=== PATIENT | male | born 1985 | race Caucasian/White ===

== ENCOUNTER 2018-03-22 11:52 | Inpatient (IN) | payer MEDICARE, MEDICAID ==
[~2018-03-22] VITALS: Ht 175.3 cm; Wt 96.2 kg
[~2018-03-22 11:52] MED LIST: DIVA500T69 PO; LISI-660 PO; METF500T6 PO; PALI156D IM; PALI6 PO
[2018-03-22 12:13] LABS: GLUCOSE,POINT OF CARE 137 MG/DL (70-110)
[2018-03-22] MEDS ORDERED: LOSA50TA37 PO (12:31)
[2018-03-22] MEDS ORDERED: RISP1 PO (12:31)
[2018-03-22] MEDS ORDERED: SITA100 PO (12:31)
[2018-03-22] MEDS ORDERED: ZOLP10TA7 PO (12:31)
[2018-03-22] MEDS ORDERED: ASPI-556 PO (12:31)
[2018-03-22] MEDS ORDERED: CLOZ100 PO (12:31)
[2018-03-22] MEDS ORDERED: CLOZ25TA4 PO (12:31)
[2018-03-22] MEDS ORDERED: LORA1TAB3 PO (12:31)
[2018-03-22] MEDS ORDERED: FENO145T PO (12:31)
[2018-03-22] MEDS ORDERED: GLIM2 PO (12:31)
[2018-03-22] MEDS ORDERED: DIPH25CA48 PO (12:31)
[2018-03-22] MEDS ORDERED: RISP.5 PO (12:31)
[2018-03-22] MEDS ORDERED: PIOG30TA10 PO (12:31)
[2018-03-22] MEDS ORDERED: DOCU250C77 PO (12:31)
[2018-03-22] MEDS ORDERED: HALOPERIDOL LACTATE 5 MG/ML VIAL IM ONE ×3 (12:45→13:45)
[2018-03-22] MEDS ORDERED: DiphenhydrAMINE HCL 50 MG/ML VIAL IM ONE (12:45)
[2018-03-22] MEDS ORDERED: LORazepam 2 MG/ML VIAL IM ONE ×2 (12:45→14:00)
[2018-03-22 13:02] LABS: BASOPHILS % (AUTO) 0.5 % (0.0-2.0); EOSINOPHILS % (AUTO) 0 % (1.0-6.0); HEMATOCRIT 40.3 % (41-53); HEMOGLOBIN 14.4 g/dL (13.5-17.5); LYMPHOCYTES # (AUTO) 2.3 K/uL (1.0-4.8); LYMPHOCYTES % (AUTO) 33.1 % (22.0-44.0); MEAN CORPUSCULAR HEMOGLOBIN 28.6 pg (26.0-34.0); MEAN CORPUSCULAR HGB CONC 35.7 G/dL (31.0-37.0); MEAN CORPUSCULAR VOLUME 80 fL (80-100); MONOCYTES # (AUTO) 0.5 K/uL (0.1-1.0); MONOCYTES % (AUTO) 7.1 % (2.0-9.0); NEUTROPHILS % (AUTO) 59.3 % (40.0-70.0); PLATELET COUNT (AUTO) 209 K/uL (150-450); RED BLOOD CELL COUNT(AUTO) 5.02 MIL/uL (4.50-5.90); RED CELL DISTRIBUTION WIDTH 14.6 % (11.5-14.5)
[2018-03-22 13:13] LABS: ANION GAP 9 mmol/L (8-16); CALCIUM, TOTAL 9.1 mg/dL (8.8-10.5); CARBON DIOXIDE 29 mmol/L (22-29); CHLORIDE 102 mmol/L (98-107); GLOMERULAR FILTR. RATE CALC > 60 mL/min (>60); GLUCOSE,RANDOM 139 mg/dL (70-110); POTASSIUM 4.1 mmol/L (3.5-5.1); SODIUM SERUM 140 mmol/L (136-145); UREA NITROGEN, BLOOD 16 mg/dL (7-18)
[2018-03-22 13:28] LABS: ALANINE AMINOTRANSFERASE 68 U/L (12-78); ALBUMIN 4.5 g/dL (3.4-5.0); ALKALINE PHOSPHATASE 38 U/L (46-116); ASPARTATE AMINOTRANSFERASE 34 U/L (15-37); BILIRUBIN,TOTAL 0.5 mg/dL (0.1-1.0); THYROID STIMULATING HORMONE 0.91 uIU/mL (0.36-3.74); TOTAL PROTEIN, SERUM 8.8 g/dL (6.4-8.2)
[2018-03-22] MEDS ORDERED: ZOLPIDEM TARTRATE 10 MG TABLET PO PRN (16:00)
[2018-03-22] MEDS ORDERED: AMOX TR/POT CLAV 500 MG/125 MG TABLET PO ONE (16:45)
[2018-03-22 16:51] LABS: AMPHET/METH SCREEN,URINE NEGATIVE (NEGATIVE); BARBITURATE SCREEN, URINE NEGATIVE (NEGATIVE); BENZODIAZEPINES SCREEN,URINE NEGATIVE (NEGATIVE); CANNABINOID SCREEN,URINE NEGATIVE (NEGATIVE); COCAINE SCREEN,URINE NEGATIVE (NEGATIVE); METHADONE SCREEN, URINE NEGATIVE (NEGATIVE); OPIATE SCREEN,URINE NEGATIVE (NEGATIVE); PHENCYCLIDINE SCREEN,URINE NEGATIVE (NEGATIVE)
[2018-03-22] MEDS ORDERED: BENZOCAINE 10% 7 GM GEL TP PRN (17:15)
[2018-03-22] MEDS ORDERED: MAG HYDROX/AL HYDROX/SIMETH ES 30 ML SUSPENSION UDCUP PO PRN (17:30)
[2018-03-22] MEDS ORDERED: MAGNESIUM HYDROXIDE SUSPENSION 30 ML UDCUP PO PRN (17:30)
[2018-03-22] MEDS ORDERED: ALBUTEROL SULFATE HFA 90 MCG/PUFF 8 GM INHALER IH PRN (17:30)
[2018-03-22] MEDS ORDERED: BACITRACIN 28.4 GM OINTMENT TP PRN (17:30)
[2018-03-22] MEDS ORDERED: PETROLATUM,WHITE 71 GM JELLY TP PRN (17:30)
[2018-03-22] MEDS ORDERED: ONDANSETRON HCL 4 MG TABLET PO PRN (17:30)
[2018-03-22] MEDS ORDERED: CloNIDine HCL 0.1 MG TABLET PO PRN (17:30)
[2018-03-22] MEDS ORDERED: IBUPROFEN 600 MG TABLET PO PRN (17:30)
[2018-03-22] MEDS ORDERED: ACETAMINOPHEN 325 MG TABLET PO PRN (17:30)
[2018-03-22] MEDS ORDERED: BENZOCAINE/MENTHOL LOZENGE MM PRN (17:30)
[2018-03-22] MEDS ORDERED: LOPERAMIDE HCL 2 MG CAPSULE PO PRN (17:30)
[2018-03-22 20:36] VITALS: BP 110/71
[2018-03-22 22:03] LABS: GLUCOMETER DEV NAME(LOC) BV3N5; GLUCOSE,POINT OF CARE 132 MG/DL (70-110)
[2018-03-23 05:41] VITALS: BP 118/67
[2018-03-23] MEDS: MetFORMIN HCL 500 MG TABLET PO SCH ×2 (06:36→16:14)
[2018-03-23] MEDS: GLIMEPIRIDE 2 MG TABLET PO SCH (06:36)
[2018-03-23 08:08] VITALS: BP 123/85
[2018-03-23] MEDS: PIOGLITAZONE HCL 30 MG TABLET PO SCH (08:44)
[2018-03-23] MEDS: OMEPRAZOLE 20 MG CAPSULE PO SCH (08:44)
[2018-03-23] MEDS: LOSARTAN POTASSIUM 50 MG TABLET PO SCH (08:44)
[2018-03-23] MEDS: SitaGLIPtin PHOSPHATE 100 MG TABLET PO SCH (08:45)
[2018-03-23] MEDS: DOCUSATE SODIUM 250 MG CAPSULE PO SCH (08:45)
[2018-03-23] MEDS: HALOPERIDOL 5 MG TABLET PO PRN ×2 (08:45→16:15)
[2018-03-23] MEDS: LORazepam 2 MG TABLET PO PRN ×2 (08:45→16:15)
[2018-03-23] MEDS: ASPIRIN 81 MG CHEWABLE TABLET PO SCH (08:45)
[2018-03-23] MEDS ORDERED: DOCUSATE SODIUM 100 MG CAPSULE PO SCH (09:00)
[2018-03-23] MEDS ORDERED: FENOFIBRATE 48 MG TABLET PO SCH (09:00)
[2018-03-23] MEDS: AMOX TR/POT CLAV 500 MG/125 MG TABLET PO SCH ×3 (09:04→16:15)
[2018-03-23] MEDS ORDERED: CloZAPine 25 MG TABLET PO SCH (09:15)
[2018-03-23] MEDS ORDERED: GLUCAGON,HUMAN RECOMBINANT 1 MG VIAL IM PRN (13:30)
[2018-03-23 16:12] VITALS: BP 118/78
[2018-03-23 17:09] LABS: GLUCOMETER DEV NAME(LOC) BV3N5; GLUCOSE,POINT OF CARE 124 MG/DL (70-110)
[2018-03-24 01:35] VITALS: BP 127/78
[2018-03-24 06:16] LABS: GLUCOMETER DEV NAME(LOC) BV3N5; GLUCOSE,POINT OF CARE 123 MG/DL (70-110)
[2018-03-24] MEDS: MetFORMIN HCL 500 MG TABLET PO SCH ×2 (06:19→16:04)
[2018-03-24] MEDS: GLIMEPIRIDE 2 MG TABLET PO SCH (06:19)
[2018-03-24 08:49] VITALS: BP 119/73
[2018-03-24] MEDS ORDERED: CloZAPine 25 MG TABLET PO SCH ×3 (09:00→21:00)
[2018-03-24] MEDS: MUPIROCIN CALCIUM 2% 22 GM OINTMENT NASAL SCH ×2 (09:00→16:04)
[2018-03-24] MEDS: PIOGLITAZONE HCL 30 MG TABLET PO SCH (09:27)
[2018-03-24] MEDS: SitaGLIPtin PHOSPHATE 100 MG TABLET PO SCH (09:27)
[2018-03-24] MEDS: DOCUSATE SODIUM 250 MG CAPSULE PO SCH (09:27)
[2018-03-24] MEDS: AMOX TR/POT CLAV 500 MG/125 MG TABLET PO SCH ×3 (09:27→16:04)
[2018-03-24] MEDS: OMEPRAZOLE 20 MG CAPSULE PO SCH (09:27)
[2018-03-24] MEDS: ASPIRIN 81 MG CHEWABLE TABLET PO SCH (09:28)
[2018-03-24] MEDS: LOSARTAN POTASSIUM 50 MG TABLET PO SCH (09:28)
[2018-03-24] MEDS: FENOFIBRATE 48 MG TABLET PO SCH (09:28)
[2018-03-24] MEDS: HALOPERIDOL 5 MG TABLET PO PRN ×2 (09:29→16:04)
[2018-03-24] MEDS: LORazepam 2 MG TABLET PO PRN ×2 (09:29→16:04)
[2018-03-24 16:00] VITALS: BP 139/69
[2018-03-25 06:23] LABS: GLUCOMETER DEV NAME(LOC) BV3N5; GLUCOSE,POINT OF CARE 113 MG/DL (70-110)
[2018-03-25] MEDS: GLIMEPIRIDE 2 MG TABLET PO SCH (06:25)
[2018-03-25] MEDS: MetFORMIN HCL 500 MG TABLET PO SCH ×2 (06:26→16:41)
[2018-03-25 06:28] VITALS: BP 128/78
[2018-03-25 08:00] VITALS: BP 113/75
[2018-03-25] MEDS ORDERED: CloZAPine 25 MG TABLET PO SCH ×2 (09:00→21:00)
[2018-03-25] MEDS: MUPIROCIN CALCIUM 2% 22 GM OINTMENT NASAL SCH ×2 (09:06→16:42)
[2018-03-25] MEDS: DOCUSATE SODIUM 250 MG CAPSULE PO SCH (09:07)
[2018-03-25] MEDS: ASPIRIN 81 MG CHEWABLE TABLET PO SCH (09:07)
[2018-03-25] MEDS: SitaGLIPtin PHOSPHATE 100 MG TABLET PO SCH (09:07)
[2018-03-25] MEDS: AMOX TR/POT CLAV 500 MG/125 MG TABLET PO SCH ×3 (09:07→16:41)
[2018-03-25] MEDS: PIOGLITAZONE HCL 30 MG TABLET PO SCH (09:07)
[2018-03-25] MEDS: LOSARTAN POTASSIUM 50 MG TABLET PO SCH (09:09)
[2018-03-25] MEDS: OMEPRAZOLE 20 MG CAPSULE PO SCH (09:09)
[2018-03-25] MEDS: FENOFIBRATE 48 MG TABLET PO SCH (09:09)
[2018-03-25 16:07] VITALS: BP 138/71
[2018-03-25 16:33] LABS: GLUCOMETER DEV NAME(LOC) BV3N5; GLUCOSE,POINT OF CARE 105 MG/DL (70-110)
[2018-03-25] MEDS: LORazepam 2 MG TABLET PO PRN (16:41)
[2018-03-26] MEDS: MetFORMIN HCL 500 MG TABLET PO SCH ×2 (06:31→17:25)
[2018-03-26] MEDS: GLIMEPIRIDE 2 MG TABLET PO SCH (06:31)
[2018-03-26 06:36] VITALS: BP 128/74
[2018-03-26 06:53] LABS: GLUCOMETER DEV NAME(LOC) BV3N5; GLUCOSE,POINT OF CARE 127 MG/DL (70-110)
[2018-03-26 08:02] LABS: BASOPHILS % (AUTO) 0.3 % (0.0-2.0); EOSINOPHILS % (AUTO) 0 % (1.0-6.0); HEMATOCRIT 38.2 % (41-53); HEMOGLOBIN 13.9 g/dL (13.5-17.5); LYMPHOCYTES # (AUTO) 2.1 K/uL (1.0-4.8); LYMPHOCYTES % (AUTO) 25.9 % (22.0-44.0); MEAN CORPUSCULAR HEMOGLOBIN 29.2 pg (26.0-34.0); MEAN CORPUSCULAR HGB CONC 36.3 G/dL (31.0-37.0); MEAN CORPUSCULAR VOLUME 80 fL (80-100); MONOCYTES # (AUTO) 0.6 K/uL (0.1-1.0); MONOCYTES % (AUTO) 7.7 % (2.0-9.0); NEUTROPHILS # (AUTO) 5.3 K/uL (1.8-7.7); NEUTROPHILS % (AUTO) 66.1 % (40.0-70.0); PLATELET COUNT (AUTO) 202 K/uL (150-450); RED BLOOD CELL COUNT(AUTO) 4.75 MIL/uL (4.50-5.90); RED CELL DISTRIBUTION WIDTH 14.5 % (11.5-14.5)
[2018-03-26 08:30] LABS: HEMOGLOBIN A1C 6.8 % (4.5-6.2)
[2018-03-26 08:33] VITALS: BP 119/63
[2018-03-26 08:54] LABS: CHOL/HDL RATIO 4.6 (4.2-7.3)
[2018-03-26] MEDS: LOSARTAN POTASSIUM 50 MG TABLET PO SCH (09:27)
[2018-03-26] MEDS: FENOFIBRATE 48 MG TABLET PO SCH (09:27)
[2018-03-26] MEDS: AMOX TR/POT CLAV 500 MG/125 MG TABLET PO SCH ×3 (09:27→17:25)
[2018-03-26] MEDS: PIOGLITAZONE HCL 30 MG TABLET PO SCH (09:27)
[2018-03-26] MEDS: SitaGLIPtin PHOSPHATE 100 MG TABLET PO SCH (09:27)
[2018-03-26] MEDS: CloZAPine 25 MG TABLET PO SCH ×2 (09:27→21:38)
[2018-03-26] MEDS: OMEPRAZOLE 20 MG CAPSULE PO SCH (09:27)
[2018-03-26] MEDS: ASPIRIN 81 MG CHEWABLE TABLET PO SCH (09:28)
[2018-03-26] MEDS: DOCUSATE SODIUM 250 MG CAPSULE PO SCH (09:29)
[2018-03-26] MEDS: LORazepam 2 MG TABLET PO PRN (09:30)
[2018-03-26] MEDS: MUPIROCIN CALCIUM 2% 22 GM OINTMENT NASAL SCH ×2 (09:30→17:26)
[2018-03-26 16:11] VITALS: BP 133/75
[2018-03-26 17:03] LABS: GLUCOMETER DEV NAME(LOC) BV3N5; GLUCOSE,POINT OF CARE 105 MG/DL (70-110)
[2018-03-27 02:08] VITALS: BP 120/79
[2018-03-27 06:34] LABS: GLUCOMETER DEV NAME(LOC) BV3N5; GLUCOSE,POINT OF CARE 117 MG/DL (70-110)
[2018-03-27] MEDS: MetFORMIN HCL 500 MG TABLET PO SCH ×2 (06:45→16:52)
[2018-03-27] MEDS: GLIMEPIRIDE 2 MG TABLET PO SCH (06:45)
[2018-03-27 08:04] VITALS: BP 122/76
[2018-03-27] MEDS: MUPIROCIN CALCIUM 2% 22 GM OINTMENT NASAL SCH ×2 (09:36→16:53)
[2018-03-27] MEDS: AMOX TR/POT CLAV 500 MG/125 MG TABLET PO SCH ×3 (09:37→16:52)
[2018-03-27] MEDS: ASPIRIN 81 MG CHEWABLE TABLET PO SCH (09:37)
[2018-03-27] MEDS: PIOGLITAZONE HCL 30 MG TABLET PO SCH (09:37)
[2018-03-27] MEDS: CloZAPine 25 MG TABLET PO SCH ×2 (09:38→20:18)
[2018-03-27] MEDS: FENOFIBRATE 48 MG TABLET PO SCH (09:38)
[2018-03-27] MEDS: PHENYLEPHRINE/SHK LV/MIN OIL/PET 57 GM OINTMENT TP SCH ×2 (09:38→16:53)
[2018-03-27] MEDS: OMEPRAZOLE 20 MG CAPSULE PO SCH (09:38)
[2018-03-27] MEDS: LOSARTAN POTASSIUM 50 MG TABLET PO SCH (09:38)
[2018-03-27] MEDS: SitaGLIPtin PHOSPHATE 100 MG TABLET PO SCH (09:38)
[2018-03-27] MEDS: DOCUSATE SODIUM 250 MG CAPSULE PO SCH (09:38)
[2018-03-27] MEDS: HALOPERIDOL 5 MG TABLET PO PRN ×2 (12:19→16:53)
[2018-03-27] MEDS: LORazepam 2 MG TABLET PO PRN ×2 (12:19→16:53)
[2018-03-27 16:00] VITALS: BP 116/68
[2018-03-27 17:08] LABS: GLUCOMETER DEV NAME(LOC) BV3N5; GLUCOSE,POINT OF CARE 98 MG/DL (70-110)
[2018-03-28 01:10] VITALS: BP 118/72
[2018-03-28] MEDS: MetFORMIN HCL 500 MG TABLET PO SCH ×2 (06:30→17:02)
[2018-03-28 06:33] LABS: GLUCOMETER DEV NAME(LOC) BV3N5; GLUCOSE,POINT OF CARE 99 MG/DL (70-110)
[2018-03-28] MEDS: GLIMEPIRIDE 2 MG TABLET PO SCH (06:42)
[2018-03-28 08:21] VITALS: BP 107/60
[2018-03-28] MEDS: DOCUSATE SODIUM 250 MG CAPSULE PO SCH (08:31)
[2018-03-28] MEDS: FENOFIBRATE 48 MG TABLET PO SCH (08:31)
[2018-03-28] MEDS: LOSARTAN POTASSIUM 50 MG TABLET PO SCH (08:32)
[2018-03-28] MEDS: PIOGLITAZONE HCL 30 MG TABLET PO SCH (08:32)
[2018-03-28] MEDS: OMEPRAZOLE 20 MG CAPSULE PO SCH (08:32)
[2018-03-28] MEDS: HALOPERIDOL 5 MG TABLET PO PRN ×2 (08:32→18:42)
[2018-03-28] MEDS: AMOX TR/POT CLAV 500 MG/125 MG TABLET PO SCH ×3 (08:32→17:02)
[2018-03-28] MEDS: MUPIROCIN CALCIUM 2% 22 GM OINTMENT NASAL SCH ×2 (08:32→17:03)
[2018-03-28] MEDS: SitaGLIPtin PHOSPHATE 100 MG TABLET PO SCH (08:32)
[2018-03-28] MEDS: LORazepam 2 MG TABLET PO PRN ×2 (08:32→18:42)
[2018-03-28] MEDS: PHENYLEPHRINE/SHK LV/MIN OIL/PET 57 GM OINTMENT TP SCH ×2 (08:33→17:00)
[2018-03-28] MEDS: ASPIRIN 81 MG CHEWABLE TABLET PO SCH (08:35)
[2018-03-28] MEDS ORDERED: CloZAPine 25 MG TABLET PO SCH (09:00)
[2018-03-28 16:00] VITALS: BP 122/74
[2018-03-28] MEDS: INSULIN LISPRO 100 UNITS/ML SQ PRN (17:06)
[2018-03-28 17:28] LABS: GLUCOMETER DEV NAME(LOC) BV3N5; GLUCOSE,POINT OF CARE 173 MG/DL (70-110)
[2018-03-28] MEDS ORDERED: CloZAPine 100 MG TABLET PO SCH (21:00)
[2018-03-29 06:23] LABS: GLUCOMETER DEV NAME(LOC) 3EC; GLUCOSE,POINT OF CARE 106 MG/DL (70-110)
[2018-03-29] MEDS: MetFORMIN HCL 500 MG TABLET PO SCH ×2 (07:01→16:31)
[2018-03-29] MEDS: GLIMEPIRIDE 2 MG TABLET PO SCH (07:01)
[2018-03-29] MEDS: INSULIN LISPRO 100 UNITS/ML SQ PRN (07:02)
[2018-03-29] MEDS: DOCUSATE SODIUM 250 MG CAPSULE PO SCH (08:53)
[2018-03-29] MEDS: ASPIRIN 81 MG CHEWABLE TABLET PO SCH (08:53)
[2018-03-29] MEDS: AMOX TR/POT CLAV 500 MG/125 MG TABLET PO SCH ×3 (08:54→16:31)
[2018-03-29] MEDS: OMEPRAZOLE 20 MG CAPSULE PO SCH (08:54)
[2018-03-29] MEDS: PIOGLITAZONE HCL 30 MG TABLET PO SCH (08:55)
[2018-03-29] MEDS: OMEGA-3/DHA/EPA/FISH OIL 1,000 MG CAPSULE PO SCH (08:55)
[2018-03-29] MEDS: LOSARTAN POTASSIUM 50 MG TABLET PO SCH (08:55)
[2018-03-29] MEDS: FENOFIBRATE 48 MG TABLET PO SCH (08:56)
[2018-03-29] MEDS: SitaGLIPtin PHOSPHATE 100 MG TABLET PO SCH (08:57)
[2018-03-29] MEDS: PHENYLEPHRINE/SHK LV/MIN OIL/PET 57 GM OINTMENT TP SCH ×2 (08:58→16:31)
[2018-03-29] MEDS ORDERED: OMEGA-3/DHA/EPA/FISH OIL 1,000 MG CAPSULE PO SCH (09:00)
[2018-03-29] MEDS ORDERED: CloZAPine 25 MG TABLET PO SCH (09:00)
[2018-03-29 13:20] VITALS: BP 96/68
[2018-03-29 16:34] LABS: GLUCOMETER DEV NAME(LOC) 3EC; GLUCOSE,POINT OF CARE 112 MG/DL (70-110)
[2018-03-29] MEDS ORDERED: CloZAPine 100 MG TABLET PO SCH (21:00)
[2018-03-30] MEDS: GLIMEPIRIDE 2 MG TABLET PO SCH (06:46)
[2018-03-30] MEDS: MetFORMIN HCL 500 MG TABLET PO SCH ×2 (06:46→16:50)
[2018-03-30 08:00] VITALS: BP 106/69
[2018-03-30] MEDS ORDERED: CloZAPine 25 MG TABLET PO SCH (09:00)
[2018-03-30] MEDS: PHENYLEPHRINE/SHK LV/MIN OIL/PET 57 GM OINTMENT TP SCH ×2 (09:00→16:51)
[2018-03-30] MEDS: PIOGLITAZONE HCL 30 MG TABLET PO SCH (09:06)
[2018-03-30] MEDS: DOCUSATE SODIUM 250 MG CAPSULE PO SCH (09:06)
[2018-03-30] MEDS: FENOFIBRATE 48 MG TABLET PO SCH (09:06)
[2018-03-30] MEDS: OMEPRAZOLE 20 MG CAPSULE PO SCH (09:06)
[2018-03-30] MEDS: SitaGLIPtin PHOSPHATE 100 MG TABLET PO SCH (09:07)
[2018-03-30] MEDS: LOSARTAN POTASSIUM 50 MG TABLET PO SCH (09:07)
[2018-03-30] MEDS: ASPIRIN 81 MG CHEWABLE TABLET PO SCH (09:07)
[2018-03-30] MEDS: OMEGA-3/DHA/EPA/FISH OIL 1,000 MG CAPSULE PO SCH (09:07)
[2018-03-30] MEDS: TERBINAFINE HCL 1% 30 GM CREAM TP SCH (16:50)
[2018-03-30 16:58] LABS: GLUCOMETER DEV NAME(LOC) 3EC; GLUCOSE,POINT OF CARE 146 MG/DL (70-110)
[2018-03-30 17:00] VITALS: BP 113/73
[2018-03-30] MEDS: HALOPERIDOL 5 MG TABLET PO PRN (18:21)
[2018-03-30] MEDS: LORazepam 2 MG TABLET PO PRN (18:58)
[2018-03-30] MEDS ORDERED: CloZAPine 100 MG TABLET PO SCH (21:00)
[2018-03-31 05:53] LABS: GLUCOMETER DEV NAME(LOC) 3EC; GLUCOSE,POINT OF CARE 119 MG/DL (70-110)
[2018-03-31] MEDS: INSULIN LISPRO 100 UNITS/ML SQ PRN ×2 (07:03→17:22)
[2018-03-31] MEDS: GLIMEPIRIDE 2 MG TABLET PO SCH (07:04)
[2018-03-31] MEDS: MetFORMIN HCL 500 MG TABLET PO SCH ×2 (07:04→16:27)
[2018-03-31] MEDS: OMEPRAZOLE 20 MG CAPSULE PO SCH (08:33)
[2018-03-31] MEDS: DOCUSATE SODIUM 250 MG CAPSULE PO SCH (08:33)
[2018-03-31] MEDS: ASPIRIN 81 MG CHEWABLE TABLET PO SCH (08:34)
[2018-03-31] MEDS: SitaGLIPtin PHOSPHATE 100 MG TABLET PO SCH (08:34)
[2018-03-31] MEDS: CloZAPine 100 MG TABLET PO SCH ×2 (08:34→20:15)
[2018-03-31] MEDS: OMEGA-3/DHA/EPA/FISH OIL 1,000 MG CAPSULE PO SCH (08:34)
[2018-03-31] MEDS: PIOGLITAZONE HCL 30 MG TABLET PO SCH (08:34)
[2018-03-31] MEDS: FENOFIBRATE 48 MG TABLET PO SCH (08:35)
[2018-03-31] MEDS: LOSARTAN POTASSIUM 50 MG TABLET PO SCH (08:35)
[2018-03-31] MEDS: TERBINAFINE HCL 1% 30 GM CREAM TP SCH (08:37)
[2018-03-31 08:46] VITALS: BP 130/64
[2018-03-31] MEDS: PHENYLEPHRINE/SHK LV/MIN OIL/PET 57 GM OINTMENT TP SCH ×2 (09:00→17:00)
[2018-03-31] MEDS: LORazepam 2 MG TABLET PO PRN (14:27)
[2018-03-31] MEDS: HALOPERIDOL 5 MG TABLET PO PRN (14:28)
[2018-03-31 16:00] VITALS: BP 132/77
[2018-03-31 16:35] LABS: GLUCOMETER DEV NAME(LOC) 3EC; GLUCOSE,POINT OF CARE 142 MG/DL (70-110)
[2018-04-01 06:44] LABS: GLUCOMETER DEV NAME(LOC) 3EC; GLUCOSE,POINT OF CARE 97 MG/DL (70-110)
[2018-04-01] MEDS: GLIMEPIRIDE 2 MG TABLET PO SCH (06:54)
[2018-04-01] MEDS: MetFORMIN HCL 500 MG TABLET PO SCH ×2 (06:54→18:11)
[2018-04-01] MEDS: INSULIN LISPRO 100 UNITS/ML SQ PRN ×2 (06:55→18:25)
[2018-04-01] MEDS: DOCUSATE SODIUM 250 MG CAPSULE PO SCH (09:44)
[2018-04-01] MEDS: CloZAPine 100 MG TABLET PO SCH ×2 (09:44→21:00)
[2018-04-01] MEDS: OMEPRAZOLE 20 MG CAPSULE PO SCH (09:45)
[2018-04-01] MEDS: LOSARTAN POTASSIUM 50 MG TABLET PO SCH (09:45)
[2018-04-01] MEDS: ASPIRIN 81 MG CHEWABLE TABLET PO SCH (09:45)
[2018-04-01] MEDS: PIOGLITAZONE HCL 30 MG TABLET PO SCH (09:45)
[2018-04-01] MEDS: OMEGA-3/DHA/EPA/FISH OIL 1,000 MG CAPSULE PO SCH (09:45)
[2018-04-01] MEDS: PHENYLEPHRINE/SHK LV/MIN OIL/PET 57 GM OINTMENT TP SCH ×2 (09:48→17:00)
[2018-04-01] MEDS: FENOFIBRATE 48 MG TABLET PO SCH (09:48)
[2018-04-01] MEDS: SitaGLIPtin PHOSPHATE 100 MG TABLET PO SCH (09:48)
[2018-04-01] MEDS: TERBINAFINE HCL 1% 30 GM CREAM TP SCH (09:49)
[2018-04-01 12:22] VITALS: BP 136/85
[2018-04-01] MEDS: HALOPERIDOL 5 MG TABLET PO PRN (13:00)
[2018-04-01] MEDS: LORazepam 2 MG TABLET PO PRN (13:00)
[2018-04-01 17:45] VITALS: BP 131/83
[2018-04-01 18:41] LABS: GLUCOMETER DEV NAME(LOC) 3EC; GLUCOSE,POINT OF CARE 194 MG/DL (70-110)
[2018-04-02 06:15] LABS: GLUCOMETER DEV NAME(LOC) 3EC; GLUCOSE,POINT OF CARE 101 MG/DL (70-110)
[2018-04-02 06:34] LABS: BASOPHILS % (AUTO) 0.7 % (0.0-2.0); EOSINOPHILS % (AUTO) 0 % (1.0-6.0); HEMATOCRIT 40.4 % (41-53); HEMOGLOBIN 14.3 g/dL (13.5-17.5); LYMPHOCYTES # (AUTO) 2.4 K/uL (1.0-4.8); LYMPHOCYTES % (AUTO) 34.4 % (22.0-44.0); MEAN CORPUSCULAR HEMOGLOBIN 28.6 pg (26.0-34.0); MEAN CORPUSCULAR HGB CONC 35.4 G/dL (31.0-37.0); MEAN CORPUSCULAR VOLUME 81 fL (80-100); MONOCYTES # (AUTO) 0.5 K/uL (0.1-1.0); MONOCYTES % (AUTO) 7.5 % (2.0-9.0); NEUTROPHILS # (AUTO) 3.9 K/uL (1.8-7.7); NEUTROPHILS % (AUTO) 57.4 % (40.0-70.0); PLATELET COUNT (AUTO) 218 K/uL (150-450); RED BLOOD CELL COUNT(AUTO) 4.99 MIL/uL (4.50-5.90); RED CELL DISTRIBUTION WIDTH 14.1 % (11.5-14.5)
[2018-04-02] MEDS: GLIMEPIRIDE 2 MG TABLET PO SCH (07:03)
[2018-04-02] MEDS: MetFORMIN HCL 500 MG TABLET PO SCH ×2 (07:03→17:53)
[2018-04-02] MEDS: INSULIN LISPRO 100 UNITS/ML SQ PRN (07:04)
[2018-04-02] MEDS ORDERED: CloZAPine 25 MG TABLET PO SCH (09:00)
[2018-04-02 09:07] VITALS: BP 122/76
[2018-04-02] MEDS: OMEGA-3/DHA/EPA/FISH OIL 1,000 MG CAPSULE PO SCH (09:21)
[2018-04-02] MEDS: PIOGLITAZONE HCL 30 MG TABLET PO SCH (09:21)
[2018-04-02] MEDS: LOSARTAN POTASSIUM 50 MG TABLET PO SCH (09:22)
[2018-04-02] MEDS: FENOFIBRATE 48 MG TABLET PO SCH (09:22)
[2018-04-02] MEDS: SitaGLIPtin PHOSPHATE 100 MG TABLET PO SCH (09:25)
[2018-04-02] MEDS: LORazepam 2 MG TABLET PO PRN (09:27)
[2018-04-02] MEDS: DOCUSATE SODIUM 250 MG CAPSULE PO SCH (09:27)
[2018-04-02] MEDS: ASPIRIN 81 MG CHEWABLE TABLET PO SCH (09:27)
[2018-04-02] MEDS: OMEPRAZOLE 20 MG CAPSULE PO SCH (09:27)
[2018-04-02] MEDS: TERBINAFINE HCL 1% 30 GM CREAM TP SCH (09:28)
[2018-04-02] MEDS: HALOPERIDOL 5 MG TABLET PO PRN (09:31)
[2018-04-02 17:09] VITALS: BP 117/84
[2018-04-02 17:34] LABS: GLUCOMETER DEV NAME(LOC) 3EC; GLUCOSE,POINT OF CARE 100 MG/DL (70-110)
[2018-04-02] MEDS ORDERED: CloZAPine 100 MG TABLET PO SCH (21:00)
[2018-04-03 06:23] LABS: GLUCOMETER DEV NAME(LOC) 3EC; GLUCOSE,POINT OF CARE 95 MG/DL (70-110)
[2018-04-03] MEDS: MetFORMIN HCL 500 MG TABLET PO SCH ×2 (07:01→16:29)
[2018-04-03] MEDS: GLIMEPIRIDE 2 MG TABLET PO SCH (07:01)
[2018-04-03] MEDS: INSULIN LISPRO 100 UNITS/ML SQ PRN (07:02)
[2018-04-03] MEDS: ASPIRIN 81 MG CHEWABLE TABLET PO SCH (08:16)
[2018-04-03] MEDS: OMEGA-3/DHA/EPA/FISH OIL 1,000 MG CAPSULE PO SCH (08:16)
[2018-04-03] MEDS: PIOGLITAZONE HCL 30 MG TABLET PO SCH (08:16)
[2018-04-03] MEDS: FENOFIBRATE 48 MG TABLET PO SCH (08:17)
[2018-04-03] MEDS: SitaGLIPtin PHOSPHATE 100 MG TABLET PO SCH (08:17)
[2018-04-03] MEDS: DOCUSATE SODIUM 250 MG CAPSULE PO SCH (08:17)
[2018-04-03] MEDS: OMEPRAZOLE 20 MG CAPSULE PO SCH (08:17)
[2018-04-03] MEDS: LOSARTAN POTASSIUM 50 MG TABLET PO SCH (08:21)
[2018-04-03 08:51] VITALS: BP 136/81
[2018-04-03] MEDS ORDERED: CloZAPine 25 MG TABLET PO SCH (09:00)
[2018-04-03] MEDS: TERBINAFINE HCL 1% 30 GM CREAM TP SCH (09:00)
[2018-04-03] MEDS: BENZTROPINE MESYLATE 1 MG TABLET PO SCH ×2 (10:30→20:19)
[2018-04-03 16:33] LABS: GLUCOMETER DEV NAME(LOC) 3EC; GLUCOSE,POINT OF CARE 97 MG/DL (70-110)
[2018-04-03 17:20] VITALS: BP 131/76
[2018-04-03] MEDS ORDERED: CloZAPine 100 MG TABLET PO SCH (21:00)
[2018-04-04 06:09] LABS: GLUCOMETER DEV NAME(LOC) 3EC; GLUCOSE,POINT OF CARE 108 MG/DL (70-110)
[2018-04-04] MEDS: MetFORMIN HCL 500 MG TABLET PO SCH ×2 (07:01→17:12)
[2018-04-04] MEDS: GLIMEPIRIDE 2 MG TABLET PO SCH (07:01)
[2018-04-04] MEDS: INSULIN LISPRO 100 UNITS/ML SQ PRN (07:03)
[2018-04-04] MEDS: DOCUSATE SODIUM 250 MG CAPSULE PO SCH ×2 (09:00→10:38)
[2018-04-04] MEDS: PIOGLITAZONE HCL 30 MG TABLET PO SCH (10:36)
[2018-04-04] MEDS: OMEGA-3/DHA/EPA/FISH OIL 1,000 MG CAPSULE PO SCH (10:36)
[2018-04-04] MEDS: FENOFIBRATE 48 MG TABLET PO SCH (10:36)
[2018-04-04] MEDS: LOSARTAN POTASSIUM 50 MG TABLET PO SCH (10:36)
[2018-04-04] MEDS: SitaGLIPtin PHOSPHATE 100 MG TABLET PO SCH (10:36)
[2018-04-04] MEDS: TERBINAFINE HCL 1% 30 GM CREAM TP SCH (10:37)
[2018-04-04] MEDS: CloZAPine 100 MG TABLET PO SCH ×2 (10:38→20:58)
[2018-04-04] MEDS: ASPIRIN 81 MG CHEWABLE TABLET PO SCH (10:38)
[2018-04-04] MEDS: OMEPRAZOLE 20 MG CAPSULE PO SCH (10:38)
[2018-04-04] MEDS: BENZTROPINE MESYLATE 1 MG TABLET PO SCH ×2 (10:38→20:58)
[2018-04-04] MEDS: LORazepam 2 MG TABLET PO PRN (12:34)
[2018-04-04] MEDS: HALOPERIDOL 5 MG TABLET PO PRN (12:34)
[2018-04-04 16:24] VITALS: BP 124/78
[2018-04-04 17:39] LABS: GLUCOMETER DEV NAME(LOC) 3EC; GLUCOSE,POINT OF CARE 146 MG/DL (70-110)
[2018-04-05] MEDS: MetFORMIN HCL 500 MG TABLET PO SCH ×2 (06:46→17:23)
[2018-04-05] MEDS: GLIMEPIRIDE 2 MG TABLET PO SCH (06:46)
[2018-04-05 07:03] LABS: GLUCOMETER DEV NAME(LOC) 3EC; GLUCOSE,POINT OF CARE 77 MG/DL (70-110)
[2018-04-05] MEDS: SitaGLIPtin PHOSPHATE 100 MG TABLET PO SCH (08:02)
[2018-04-05] MEDS: DOCUSATE SODIUM 250 MG CAPSULE PO SCH (08:02)
[2018-04-05] MEDS: FENOFIBRATE 48 MG TABLET PO SCH (08:03)
[2018-04-05] MEDS: CloZAPine 100 MG TABLET PO SCH ×2 (08:03→20:14)
[2018-04-05] MEDS: LOSARTAN POTASSIUM 50 MG TABLET PO SCH (08:03)
[2018-04-05] MEDS: OMEGA-3/DHA/EPA/FISH OIL 1,000 MG CAPSULE PO SCH (08:03)
[2018-04-05] MEDS: BENZTROPINE MESYLATE 1 MG TABLET PO SCH ×2 (08:03→20:14)
[2018-04-05] MEDS: PIOGLITAZONE HCL 30 MG TABLET PO SCH (08:03)
[2018-04-05] MEDS: ASPIRIN 81 MG CHEWABLE TABLET PO SCH (08:04)
[2018-04-05] MEDS: OMEPRAZOLE 20 MG CAPSULE PO SCH (08:04)
[2018-04-05] MEDS: TERBINAFINE HCL 1% 30 GM CREAM TP SCH (08:12)
[2018-04-05 12:42] VITALS: BP 127/74
[2018-04-05 16:13] VITALS: BP 108/78
[2018-04-05 16:14] LABS: GLUCOMETER DEV NAME(LOC) 3EC; GLUCOSE,POINT OF CARE 133 MG/DL (70-110)
[2018-04-06 06:09] LABS: GLUCOMETER DEV NAME(LOC) 3EC; GLUCOSE,POINT OF CARE 79 MG/DL (70-110)
[2018-04-06] MEDS: MetFORMIN HCL 500 MG TABLET PO SCH ×2 (06:54→16:34)
[2018-04-06] MEDS: GLIMEPIRIDE 2 MG TABLET PO SCH (06:54)
[2018-04-06] MEDS: PIOGLITAZONE HCL 30 MG TABLET PO SCH (08:29)
[2018-04-06] MEDS: ASPIRIN 81 MG CHEWABLE TABLET PO SCH (08:29)
[2018-04-06] MEDS: OMEPRAZOLE 20 MG CAPSULE PO SCH (08:30)
[2018-04-06] MEDS: OMEGA-3/DHA/EPA/FISH OIL 1,000 MG CAPSULE PO SCH (08:30)
[2018-04-06] MEDS: FENOFIBRATE 48 MG TABLET PO SCH (08:30)
[2018-04-06] MEDS: CloZAPine 100 MG TABLET PO SCH ×2 (08:30→21:25)
[2018-04-06] MEDS: BENZTROPINE MESYLATE 1 MG TABLET PO SCH ×2 (08:30→21:25)
[2018-04-06] MEDS: DOCUSATE SODIUM 250 MG CAPSULE PO SCH (08:30)
[2018-04-06] MEDS: LOSARTAN POTASSIUM 50 MG TABLET PO SCH (08:30)
[2018-04-06] MEDS: SitaGLIPtin PHOSPHATE 100 MG TABLET PO SCH (08:30)
[2018-04-06] MEDS: TERBINAFINE HCL 1% 30 GM CREAM TP SCH (08:31)
[2018-04-06 09:25] VITALS: BP 119/66
[2018-04-06 16:41] VITALS: BP 118/71
[2018-04-06] MEDS: INSULIN LISPRO 100 UNITS/ML SQ PRN (17:30)
[2018-04-06 17:33] LABS: GLUCOMETER DEV NAME(LOC) 3EC; GLUCOSE,POINT OF CARE 168 MG/DL (70-110)
[2018-04-07 05:34] LABS: GLUCOMETER DEV NAME(LOC) 3EC; GLUCOSE,POINT OF CARE 78 MG/DL (70-110)
[2018-04-07] MEDS: MetFORMIN HCL 500 MG TABLET PO SCH ×2 (06:49→16:39)
[2018-04-07] MEDS: GLIMEPIRIDE 2 MG TABLET PO SCH (06:49)
[2018-04-07] MEDS: DOCUSATE SODIUM 250 MG CAPSULE PO SCH (08:26)
[2018-04-07] MEDS: BENZTROPINE MESYLATE 1 MG TABLET PO SCH (08:26)
[2018-04-07] MEDS: ASPIRIN 81 MG CHEWABLE TABLET PO SCH (08:26)
[2018-04-07] MEDS: CloZAPine 100 MG TABLET PO SCH (08:27)
[2018-04-07] MEDS: OMEGA-3/DHA/EPA/FISH OIL 1,000 MG CAPSULE PO SCH (08:27)
[2018-04-07] MEDS: SitaGLIPtin PHOSPHATE 100 MG TABLET PO SCH (08:27)
[2018-04-07] MEDS: FENOFIBRATE 48 MG TABLET PO SCH (08:27)
[2018-04-07] MEDS: OMEPRAZOLE 20 MG CAPSULE PO SCH (08:27)
[2018-04-07] MEDS: LOSARTAN POTASSIUM 50 MG TABLET PO SCH (08:27)
[2018-04-07] MEDS: PIOGLITAZONE HCL 30 MG TABLET PO SCH (08:27)
[2018-04-07 09:20] VITALS: BP 112/68
[2018-04-07] MEDS ORDERED: BENZ1TAB10 PO (10:20)
[2018-04-07] MEDS ORDERED: CLOZ100 PO ×2 (10:20)
[2018-04-07] MEDS ORDERED: OMEG-12 PO (11:05)
[2018-04-07] MEDS ORDERED: OMEP20 PO (11:06)
[2018-04-07 16:54] LABS: GLUCOMETER DEV NAME(LOC) 3EC; GLUCOSE,POINT OF CARE 99 MG/DL (70-110)
== END 2018-04-07 17:00 | disposition home or self-care (01) | DRG 885 ==
LOC: EMS 11:53 → B3A 17:41 → 3EC 03-28 18:21
DX: F25.0 Schizoaffective disorder, bipolar type (principal); R45.851 Suicidal ideations; E11.65 Type 2 diabetes mellitus with hyperglycemia; F12.90 Cannabis use, unspecified, uncomplicated; F17.200 Nicotine dependence, unspecified, uncomplicated; G47.00 Insomnia, unspecified; I10 Essential (primary) hypertension; R32 Unspecified urinary incontinence; R45.850 Homicidal ideations; S02.5XXA Fracture of tooth (traumatic), initial encounter for closed fracture; Z78.1 Physical restraint status; Y04.0XXA Assault by unarmed brawl or fight, initial encounter; Y93.89 Activity, other specified; Y92.89 Other specified places as the place of occurrence of the external cause; Y99.8 Other external cause status
CPT/HCPCS: 83036; 84443; 87081; 96372; 99285; G0480; J1630; J2060

== ENCOUNTER 2025-05-10 16:00 | Inpatient (IN) | payer MEDICARE, MEDICAID ==
[~2025-05-10] VITALS: Ht 172.7 cm; Wt 76.5 kg
[2025-05-10 11:43] VITALS: BP 134/82; PULSE 74; RESP 18; TEMP 97.8; O2SAT 99
[~2025-05-10 16:00] MED LIST changes: +ASPI-556 PO; +BENZ-247 PO; +CLOZ100T12 PO; -DIVA500T69 PO; +DOCU250C77 PO; +FENO145T PO; +GLIM2TAB35 PO; -LISI-660 PO; +LOSA-382 PO; +METF-1211 PO; -METF500T6 PO; +OMEG-12 PO; +OMEP-148 PO; -PALI156D IM; -PALI6 PO; +PIOG30TA10 PO; +SITA100 PO
[2025-05-10] MEDS ORDERED: INSU200I SQ (17:00)
[2025-05-10] MEDS ORDERED: BENZ0.5T52 PO (17:00)
[2025-05-10] MEDS ORDERED: METF-81 PO (17:00)
[2025-05-10] MEDS ORDERED: ATOR-2 PO (17:00)
[2025-05-10] MEDS ORDERED: THIAMINE 100 MG TABLET PO SCH (17:00)
[2025-05-10] MEDS ORDERED: MAGNESIUM HYDROXIDE SUSPENSION 30 ML UDCUP PO PRN (17:00)
[2025-05-10] MEDS ORDERED: INSU100I24 SQ (17:00)
[2025-05-10] MEDS ORDERED: OMEP20CA12 PO (17:00)
[2025-05-10] MEDS ORDERED: ZOLPIDEM TARTRATE 10 MG TABLET PO PRN (17:00)
[2025-05-10] MEDS ORDERED: LOPERAMIDE HCL 2 MG CAPSULE PO PRN (17:00)
[2025-05-10] MEDS ORDERED: MAG HYDROX/ALUMINUM HYD/SIMETH ES 30 ML SUSPENSION UDCUP PO PRN (17:00)
[2025-05-10] MEDS ORDERED: GuaiFENesin/D-METHORPHAN [SUGAR-FREE] 200-20MG/10 ML SYRUP UDCUP PO PRN (17:00)
[2025-05-10] MEDS ORDERED: GABA-529 PO (17:00)
[2025-05-10] MEDS ORDERED: TUBERCULIN, PURIFIED PROTEIN DERIVATIVE 5 TU/0.1 ML SYRINGE ID ONE (17:00)
[2025-05-10] MEDS ORDERED: OLANZapine 5 MG RAPDIS TABLET PO PRN (17:00)
[2025-05-10] MEDS ORDERED: PROMETHAZINE HCL 25 MG TABLET PO PRN (17:00)
[2025-05-10] MEDS ORDERED: CLOZ100T11 PO (17:00)
[2025-05-10] MEDS ORDERED: ACETAMINOPHEN 325 MG TABLET PO PRN (17:00)
[2025-05-10] MEDS ORDERED: [UNRECOGNIZED DRUG - CODE] IM (17:00)
[2025-05-10] MEDS ORDERED: OLANZapine 5 MG RAPDIS TABLET PO SCH (21:00)
[2025-05-10] MEDS ORDERED: DIVALPROEX SODIUM 500 MG ER TABLET PO SCH ×2 (21:00)
[2025-05-10] MEDS ORDERED: MELATONIN 5 MG TABLET PO SCH (21:00)
[2025-05-11] MEDS ORDERED: PNEUMOCOCCAL VACCINE POLYVALENT 0.5 ML SYRINGE [PPSV23] IM. ONE (02:15)
[2025-05-11] MEDS ORDERED: NALTREXONE HCL 50 MG TABLET PO SCH (09:00)
[2025-05-11] MEDS ORDERED: MULTIVITAMINS WITH MINERALS, THERAPEUTIC TABLET PO SCH (09:00)
[2025-05-11] MEDS ORDERED: FOLIC ACID 1 MG TABLET PO SCH (09:00)
[2025-05-11] MEDS ORDERED: PALIPERIDONE PALMITATE 234 MG/1.5 ML SYRINGE IM ONE (09:00)
[2025-05-15] MEDS ORDERED: PALIPERIDONE PALMITATE 156 MG/ML SYRINGE IM ONE (09:00)
== END 2025-05-11 05:36 | disposition short-term general hospital (02) | DRG 885 ==
LOC: B3A 16:29
PROVIDERS: ADMIT Psychiatry & Neurology Psychiatry; ATTEND Psychiatry & Neurology Psychiatry
PROC: GZHZZZZ Group Psychotherapy (ICD-10-PCS; principal; 2025-05-10)
PROC: GZ51ZZZ Individual Psychotherapy, Behavioral (ICD-10-PCS; 2025-05-10)
PROC: GZ58ZZZ Individual Psychotherapy, Cognitive-Behavioral (ICD-10-PCS; 2025-05-10)
PROC: GZ56ZZZ Individual Psychotherapy, Supportive (ICD-10-PCS; 2025-05-11)
DX: F20.9 Schizophrenia, unspecified (principal); E11.10 Type 2 diabetes mellitus with ketoacidosis without coma; J44.9 Chronic obstructive pulmonary disease, unspecified; I10 Essential (primary) hypertension; Z55.5 Less than a high school diploma; Z59.9 Problem related to housing and economic circumstances, unspecified; Z63.9 Problem related to primary support group, unspecified; Z65.3 Problems related to other legal circumstances; Z88.5 Allergy status to narcotic agent

== ENCOUNTER 2025-05-10 23:01 | Inpatient (IN) | payer MEDICARE, OTHER ==
[~2025-05-10] VITALS: Ht 172.7 cm; Wt 80.4 kg
[~2025-05-10 23:01] MED LIST changes: +ATOR-2 PO; +BENZ0.5T52 PO; +CLOZ100T11 PO; +GABA-529 PO; +INSU100I24 SQ; +INSU200I SQ; +METF-81 PO; +OMEP20CA12 PO; +[UNRECOGNIZED DRUG - CODE] IM
[2025-05-11 00:13] LABS: PLATELET COUNT (AUTO) 96 K/uL (150-450); RED BLOOD CELL COUNT(AUTO) 4.60 MIL/uL (4.50-5.90); RED CELL DISTRIBUTION WIDTH 13.5 % (11.5-14.5); WHITE BLOOD COUNT (AUTO) 5.4 K/uL (4.5-11.0)
[2025-05-11 00:15] LABS: CALCIUM, TOTAL 8.2 mg/dL (8.8-10.5); CREATININE 1.13 mg/dL (0.60-1.30); GLOMERULAR FILTR. RATE CALC > 60 mL/min (>60); SODIUM SERUM 130 mmol/L (136-145); UREA NITROGEN, BLOOD 25 mg/dL (7-18)
[2025-05-11 00:18] LABS: ASPARTATE AMINOTRANSFERASE 37 U/L (15-37); PHOSPHORUS 3.2 mg/dL (2.5-4.9); TOTAL PROTEIN, SERUM 6.9 g/dL (6.4-8.2)
[2025-05-11 00:23] LABS: GLUCOSE,RANDOM 655 mg/dL (70-110)
[2025-05-11 00:25] LABS: TROPONIN I-HIGH SENSITIVITY 4 ng/L (<76)
[2025-05-11 00:28] LABS: ALCOHOL, BLOOD (SERUM) < 3 mg/dL (0-10)
[2025-05-11 00:35] LABS: COVID AG,FIA SOURCE NASAL SWAB
[2025-05-11 00:41] LABS: APPEARANCE,URINE CLEAR (CLEAR); GLUCOSE, URINE (UA) >=1000 mg/dL (NEGATIVE); LEUKOCYTE ESTERASE ,URINE NEGATIVE (NEGATIVE); NITRATE,URINE NEGATIVE (NEGATIVE); OCCULT BLOOD,URINE NEGATIVE (NEGATIVE); PH,URINE DRUG SCREEN 6.0 (5.0-8.0); SPECIFIC GRAVITIY, URINE 1.029 (1.003-1.030)
[2025-05-11 00:45] LABS: ACETONE,BLOOD 1:64 (NEGATIVE)
[2025-05-11 00:46] LABS: AMPHET/METH SCREEN,URINE NEGATIVE (NEGATIVE); BARBITURATE SCREEN, URINE NEGATIVE (NEGATIVE); CANNABINOID SCREEN,URINE NEGATIVE (NEGATIVE); COCAINE SCREEN,URINE NEGATIVE (NEGATIVE); METHADONE SCREEN, URINE NEGATIVE (NEGATIVE)
[2025-05-11 00:47] LABS: ALCOHOL, URINE DRUG SCREEN NEGATIVE (NEGATIVE)
[2025-05-11 00:56] LABS: SARS-COV2 (COVID) ANTIGEN,FIA Negative (Negative)
[2025-05-11] MEDS ORDERED: POTASSIUM CHLORIDE 40 MEQ in SODIUM CHLORIDE 0.45% 1,000 ML IV PRN (01:00)
[2025-05-11] MEDS ORDERED: DEXTROSE 50%-WATER 25 GM/50 ML SYRINGE IVP PRN ×2 (01:00→03:00)
[2025-05-11] MEDS ORDERED: DEXTROSE 5%-0.45% SODIUM CHL 1,000 ML IV PRN (01:00)
[2025-05-11 01:13] LABS: CAP TOTAL HEMOGLOBIN 13.4 G/dL (13.5-17.5); CAPILLARY BLOOD BASE EXCESS -2.9 mmol/L (-2.0-3.0); CAPILLARY BLOOD HCO3 22.0 mEq/l (21.0-28.0); CAPILLARY BLOOD OXYGEN SAT 83.7 % (94.0-98.0); CAPILLARY BLOOD PARTIAL CO2 40.3 mmHg (35.0-48.0); CAPILLARY BLOOD PH 7.365 (7.350-7.450); FRACTIONATED INSPIRED OXYGEN 21.0 % (21-100.0); PO2,CAP BLD GAS 48.2 mmHg (83.0-108.0); SITE, BLOOD GAS nURSE dRAW; SOURCE, BLOOD GAS VENOUS; TEMPERATURE, FAHRENHEIT, BG 98.6 FAHREN (96.0-98.6)
[2025-05-11] MEDS: SODIUM CHLORIDE 0.9% 1,000 ML IV SCH ×3 (01:23→11:17)
[2025-05-11] MEDS: INSULIN REGULAR, HUMAN 100 UNITS/ML IVP ONE ×2 (01:24→03:02)
[2025-05-11] MEDS: INSULIN REGULAR, HUMAN 100 UNITS in SODIUM CHLORIDE 0.9% 99 ML IV PRN (01:28)
[2025-05-11 02:35] LABS: GLUCOMETER DEV NAME(LOC) ERT.7; GLUCOSE,POINT OF CARE 310 MG/DL (70-110)
[2025-05-11] MEDS ORDERED: INSULIN REGULAR, HUMAN 100 UNITS in SODIUM CHLORIDE 0.9% 99 ML IV PRN (03:00)
[2025-05-11] MEDS ORDERED: SODIUM CHLORIDE 0.45% 1,000 ML IV PRN (03:00)
[2025-05-11] MEDS: INSULIN REGULAR, HUMAN 100 UNITS/ML IVP PRN (03:29)
[2025-05-11 04:20] LABS: CALCIUM, TOTAL 9.0 mg/dL (8.8-10.5); CREATININE 0.70 mg/dL (0.60-1.30); GLOMERULAR FILTR. RATE CALC > 60 mL/min (>60); GLUCOSE,RANDOM 175 mg/dL (70-110); SODIUM SERUM 139 mmol/L (136-145); UREA NITROGEN, BLOOD 19 mg/dL (7-18)
[2025-05-11 04:25] LABS: PHOSPHORUS 2.7 mg/dL (2.5-4.9)
[2025-05-11] MEDS: DEXTROSE 5%-0.45% SODIUM CHL 1,000 ML IV PRN (04:29)
[2025-05-11 05:53] LABS: ABG BASE EXCESS -1.0 mmol/L (-2.0-3.0); ABG CARBOXYHEMOGLOBIN 0.6 % (0.5-1.5); ABG HCO3 23.9 mmol/L (21.0-28.0); ABG METHEMOGLOBIN 1.1 % (0.0-1.5); ABG OXYGEN CONTENT 18.0 mL/dL (15.0-23.0); ABG OXYGEN SATURATION 96.7 % (94.0-98.0); ABG OXYHEMOGLOBIN 95.1 % (94.0-98.0); ABG PCO2 38 mmHg (32.0-48.0); ABG PH 7.411 (7.350-7.450); ABG TOTAL HEMOGLOBIN 13.4 G/dL (13.5-17.5); FRACTIONATED INSPIRED OXYGEN 21.0 % (21-100.0); PO2, ARTERIAL BG 87.7 mmHg (83.0-108.0); SOURCE, BLOOD GAS ARTERIAL; TEMPERATURE, FAHRENHEIT, BG 98.6 FAHREN (96.0-98.6)
[2025-05-11 05:54] LABS: ABG A-A DIFF O2 16.4 mmHg (10-20.0); ALLEN TEST, BLOOD GAS POS; SITE, BLOOD GAS RT RADIAL
[2025-05-11] MEDS: POTASSIUM CHLORIDE 40 MEQ in SODIUM CHLORIDE 0.45% 1,000 ML IV PRN (06:20)
[2025-05-11 06:29] LABS: PHOSPHORUS 2.7 mg/dL (2.5-4.9)
[2025-05-11 06:32] LABS: ASPARTATE AMINOTRANSFERASE 25 U/L (15-37); CALCIUM, TOTAL 7.7 mg/dL (8.8-10.5); CREATININE 0.68 mg/dL (0.60-1.30); GLOMERULAR FILTR. RATE CALC > 60 mL/min (>60); GLUCOSE,RANDOM 79 mg/dL (70-110); SODIUM SERUM 143 mmol/L (136-145); TOTAL PROTEIN, SERUM 6.5 g/dL (6.4-8.2); UREA NITROGEN, BLOOD 16 mg/dL (7-18)
[2025-05-11] MEDS ORDERED: MAGNESIUM HYDROXIDE SUSPENSION 30 ML UDCUP PO PRN (06:45)
[2025-05-11] MEDS ORDERED: ONDANSETRON HCL 4 MG/2 ML VIAL IVP PRN (06:45)
[2025-05-11] MEDS ORDERED: BISACODYL 10 MG RECTAL RECTAL SUPPOSITORY PR PRN (06:45)
[2025-05-11 07:50] LABS: GLUCOMETER DEV NAME(LOC) ERT.7; GLUCOSE,POINT OF CARE 140 MG/DL (70-110)
[2025-05-11 08:46] LABS: CALCIUM, TOTAL 7.3 mg/dL (8.8-10.5); CREATININE 0.72 mg/dL (0.60-1.30); GLOMERULAR FILTR. RATE CALC > 60 mL/min (>60); SODIUM SERUM 130 mmol/L (136-145); UREA NITROGEN, BLOOD 14 mg/dL (7-18)
[2025-05-11 08:48] LABS: GLUCOSE,RANDOM 484 mg/dL (70-110)
[2025-05-11 08:50] LABS: GLUCOMETER DEV NAME(LOC) ERT.7; GLUCOSE,POINT OF CARE 133 MG/DL (70-110)
[2025-05-11 09:00] VITALS: BP 126/86; PULSE 93; RESP 17; TEMP 98; O2SAT 96
[2025-05-11] MEDS: PANTOPRAZOLE SODIUM 40 MG DR TABLET PO SCH (09:00)
[2025-05-11] MEDS: ATORVASTATIN CALCIUM 40 MG TABLET PO SCH (09:00)
[2025-05-11] MEDS: DOCUSATE SODIUM 100 MG CAPSULE PO SCH (09:00)
[2025-05-11] MEDS: HEPARIN SODIUM,PORCINE 5,000 UNITS/ML VIAL SQ SCH (10:08)
[2025-05-11] MEDS: POTASSIUM CHL 20 MEQ/0.45% NS 1,000 ML IV PRN (10:09)
[2025-05-11 10:10] LABS: GLUCOMETER DEV NAME(LOC) ICUN.6; GLUCOSE,POINT OF CARE 137 MG/DL (70-110)
[2025-05-11] MEDS ORDERED: GLUCAGON,HUMAN RECOMBINANT 1 MG VIAL IM PRN (11:15)
[2025-05-11 12:00] VITALS: BP 126/81; PULSE 80; RESP 20; TEMP 98; O2SAT 98
[2025-05-11] MEDS: INSULIN LISPRO 100 UNITS/ML SQ PRN (12:59)
[2025-05-11 13:26] LABS: GLUCOMETER DEV NAME(LOC) ICUN.6; GLUCOSE,POINT OF CARE 150 MG/DL (70-110)
[2025-05-11 16:00] VITALS: BP 120/79; PULSE 69; PULSE 71; RESP 18; TEMP 98.7; O2SAT 93
[2025-05-11 17:36] LABS: GLUCOMETER DEV NAME(LOC) ICUN.6; GLUCOSE,POINT OF CARE 233 MG/DL (70-110)
[2025-05-11 20:45] VITALS: BP 114/83; PULSE 71; RESP 17; TEMP 98.4; O2SAT 96
[2025-05-11] MEDS: INSULIN GLARGINE,HUM.REC.ANLOG 100 UNITS/ML SQ SCH (20:47)
[2025-05-12 00:13] VITALS: BP 102/63; PULSE 61; RESP 18; TEMP 97.7; O2SAT 100
[2025-05-12 04:28] VITALS: BP 96/64; PULSE 58; RESP 17; TEMP 97.9; O2SAT 100
[2025-05-12] MEDS: ACETAMINOPHEN 325 MG TABLET PO PRN (04:48)
[2025-05-12 07:27] VITALS: BP 114/89; PULSE 78; RESP 18; TEMP 97.9; O2SAT 99
[2025-05-12 07:27] LABS: PHOSPHORUS 3.4 mg/dL (2.5-4.9)
[2025-05-12 09:56] LABS: PLATELET COUNT (AUTO) 112 K/uL (150-450); RED BLOOD CELL COUNT(AUTO) 4.60 MIL/uL (4.50-5.90); RED CELL DISTRIBUTION WIDTH 13.9 % (11.5-14.5); WHITE BLOOD COUNT (AUTO) 3.9 K/uL (4.5-11.0)
[2025-05-12 10:03] LABS: CALCIUM, TOTAL 8.3 mg/dL (8.8-10.5); CREATININE 0.80 mg/dL (0.60-1.30); GLOMERULAR FILTR. RATE CALC > 60 mL/min (>60); GLUCOSE,RANDOM 297 mg/dL (70-110); SODIUM SERUM 137 mmol/L (136-145); UREA NITROGEN, BLOOD 8 mg/dL (7-18)
[2025-05-12 11:20] VITALS: BP 122/79; PULSE 89; RESP 18; TEMP 98.1; O2SAT 97
[2025-05-12] MEDS ORDERED: MAGNESIUM OXIDE 400 MG TABLET PO PRN (11:30)
[2025-05-12] MEDS ORDERED: MAGNESIUM SULFATE 4 GM/WATER 100 ML IV PRN (11:30)
[2025-05-12 15:28] VITALS: BP 111/81; PULSE 74; RESP 18; TEMP 97.7; O2SAT 96
[2025-05-12] MEDS: MAGNESIUM SULFATE 2 GM/WATER 50 ML IV PRN (17:39)
[2025-05-12] MEDS ORDERED: MAG HYDROX/ALUMINUM HYD/SIMETH ES 30 ML SUSPENSION UDCUP PO PRN (17:45)
[2025-05-12] MEDS ORDERED: PALIPERIDONE 3 MG ER TABLET PO PRN (17:45)
[2025-05-12] MEDS ORDERED: MAGNESIUM HYDROXIDE SUSPENSION 30 ML UDCUP PO PRN (17:45)
[2025-05-12] MEDS ORDERED: PROMETHAZINE HCL 25 MG TABLET PO PRN (17:45)
[2025-05-12] MEDS ORDERED: GuaiFENesin/D-METHORPHAN [SUGAR-FREE] 200-20MG/10 ML SYRUP UDCUP PO PRN (17:45)
[2025-05-12] MEDS ORDERED: LOPERAMIDE HCL 2 MG CAPSULE PO PRN (17:45)
[2025-05-12 18:00] LABS: GLUCOMETER DEV NAME(LOC) 5N.1D; GLUCOSE,POINT OF CARE 215 MG/DL (70-110)
[2025-05-12 18:00] LABS: GLUCOMETER DEV NAME(LOC) 5N.1D; GLUCOSE,POINT OF CARE 386 MG/DL (70-110)
[2025-05-12 18:01] LABS: GLUCOMETER DEV NAME(LOC) 5N.1D; GLUCOSE,POINT OF CARE 323 MG/DL (70-110)
[2025-05-12 18:01] LABS: GLUCOMETER DEV NAME(LOC) 5N.1D; GLUCOSE,POINT OF CARE 306 MG/DL (70-110)
[2025-05-12] MEDS: CYANOCOBALAMIN 1,000 MCG/ML VIAL IM ONE (18:25)
[2025-05-12 20:03] VITALS: BP 113/85; PULSE 72; RESP 18; TEMP 98.4; O2SAT 96
[2025-05-12] MEDS: PALIPERIDONE 6 MG ER TABLET PO SCH (21:10)
[2025-05-12] MEDS: THIAMINE 100 MG TABLET PO SCH (21:10)
[2025-05-12] MEDS: INSULIN GLARGINE,HUM.REC.ANLOG 100 UNITS/ML SQ SCH (21:11)
[2025-05-12] MEDS: ZOLPIDEM TARTRATE 5 MG TABLET PO PRN (23:38)
[2025-05-13 04:21] LABS: GLUCOMETER DEV NAME(LOC) 5N.2C; GLUCOSE,POINT OF CARE 309 MG/DL (70-110)
[2025-05-13 05:25] VITALS: BP 106/87; PULSE 80; RESP 18; TEMP 98.6; O2SAT 99
[2025-05-13 05:46] LABS: GLUCOMETER DEV NAME(LOC) 6S.1D; GLUCOSE,POINT OF CARE 340 MG/DL (70-110)
[2025-05-13] MEDS ORDERED: DEXTROSE 50%-WATER 25 GM/50 ML SYRINGE IVP PRN (06:00)
[2025-05-13] MEDS: OMEPRAZOLE 20 MG CAPSULE PO SCH (06:03)
[2025-05-13] MEDS: INSULIN LISPRO 100 UNITS/ML SQ PRN (06:04)
[2025-05-13 07:07] VITALS: BP 123/79; PULSE 78; RESP 18; TEMP 98.3; O2SAT 97
[2025-05-13 07:40] LABS: GLUCOMETER DEV NAME(LOC) 6N.2C; GLUCOSE,POINT OF CARE 471 MG/DL (70-110)
[2025-05-13] MEDS: FOLIC ACID 1 MG TABLET PO SCH (08:25)
[2025-05-13] MEDS: MULTIVITAMINS WITH MINERALS, THERAPEUTIC TABLET PO SCH (08:25)
[2025-05-13 14:53] LABS: COVID AG,FIA SOURCE NASAL SWAB
[2025-05-13 15:24] VITALS: BP 125/70; PULSE 76; RESP 18; TEMP 98.1; O2SAT 97
[2025-05-13 15:50] LABS: PLATELET COUNT (AUTO) 132 K/uL (150-450); RED BLOOD CELL COUNT(AUTO) 4.60 MIL/uL (4.50-5.90); RED CELL DISTRIBUTION WIDTH 13.6 % (11.5-14.5); WHITE BLOOD COUNT (AUTO) 3.5 K/uL (4.5-11.0)
[2025-05-13 15:51] LABS: SARS-COV2 (COVID) ANTIGEN,FIA Negative (Negative)
[2025-05-13 15:58] LABS: CALCIUM, TOTAL 8.9 mg/dL (8.8-10.5); CREATININE 0.94 mg/dL (0.60-1.30); GLOMERULAR FILTR. RATE CALC > 60 mL/min (>60); SODIUM SERUM 131 mmol/L (136-145); UREA NITROGEN, BLOOD 8 mg/dL (7-18)
[2025-05-13 16:03] LABS: GLUCOSE,RANDOM 483 mg/dL (70-110)
[2025-05-13 16:13] LABS: CHOL/HDL RATIO 5.1 (4.2-7.3)
[2025-05-13] MEDS: INSULIN LISPRO 100 UNITS/ML SQ ONE (16:16)
[2025-05-13 19:10] VITALS: BP 113/77; PULSE 63; RESP 18; TEMP 97.9; O2SAT 100
[2025-05-13 19:45] LABS: GLUCOMETER DEV NAME(LOC) 6S.2; GLUCOSE,POINT OF CARE 459 MG/DL (70-110)
[2025-05-13 20:21] LABS: GLUCOMETER DEV NAME(LOC) 6S.1D; GLUCOSE,POINT OF CARE 333 MG/DL (70-110)
[2025-05-13 21:10] LABS: GLUCOMETER DEV NAME(LOC) 6S.2; GLUCOSE,POINT OF CARE 275 MG/DL (70-110)
[2025-05-13 23:51] LABS: GLUCOMETER DEV NAME(LOC) 6N.2C; GLUCOSE,POINT OF CARE 316 MG/DL (70-110)
[2025-05-13 23:51] LABS: GLUCOMETER DEV NAME(LOC) 6N.2C; GLUCOSE,POINT OF CARE 534 MG/DL (70-110)
[2025-05-16 21:06] LABS: CLOZAPINE & NORCLOZAPINE <40 ng/mL; NORCLOZAPINE <20 ng/mL (Not Estab.)
== END 2025-05-13 20:56 | DRG 639 ==
LOC: EMS 23:01 → EDH 05-11 02:54 → ICU 05-11 08:45 → 5N 05-11 20:02 → 6S 05-12 20:50
PROVIDERS: ADMIT Internal Medicine; ATTEND Internal Medicine
DX: E11.10 Type 2 diabetes mellitus with ketoacidosis without coma (principal); I10 Essential (primary) hypertension; F25.0 Schizoaffective disorder, bipolar type; J44.9 Chronic obstructive pulmonary disease, unspecified; E78.5 Hyperlipidemia, unspecified; E87.6 Hypokalemia; Z20.822 Contact with and (suspected) exposure to COVID-19; Z88.5 Allergy status to narcotic agent; Z79.899 Other long term (current) drug therapy; Z72.0 Tobacco use; Z79.4 Long term (current) use of insulin; Z79.82 Long term (current) use of aspirin; Z79.84 Long term (current) use of oral hypoglycemic drugs
CPT/HCPCS: 36600; 71045; 80048; 80053; 80061; 80076; 80159; 80307; 81001; 82009; 82010; 82040; 82805; 82962; 83735; 83930; 84100; 84439; 84443; 84484; 85025; 86592; 87081; 93005; 96365; 96375; 99291; G0480; J1644; J1815; J3420; J3475; J3480; J7030; J7050; 36415-L1; 36415-TC

== ENCOUNTER 2025-05-13 15:54 | Inpatient (IN) | payer MEDICARE, MEDICAID ==
[~2025-05-13] VITALS: Ht 175.3 cm; Wt 79.3 kg
[~2025-05-13 15:54] MED LIST changes: -ASPI-556 PO; -BENZ-247 PO; -CLOZ100T12 PO; -DOCU250C77 PO; -FENO145T PO; -GLIM2TAB35 PO; -LOSA-382 PO; -METF-1211 PO; -OMEG-12 PO; -OMEP-148 PO; -PIOG30TA10 PO; -SITA100 PO
[2025-05-13] MEDS ORDERED: PALIPERIDONE 3 MG ER TABLET PO PRN (16:15)
[2025-05-13 21:00] VITALS: BP 111/77; PULSE 82; RESP 16; TEMP 97.8; O2SAT 98
[2025-05-13] MEDS: PALIPERIDONE 6 MG ER TABLET PO SCH (21:00)
[2025-05-13] MEDS ORDERED: MAGNESIUM HYDROXIDE SUSPENSION 30 ML UDCUP PO PRN (22:45)
[2025-05-13] MEDS ORDERED: ACETAMINOPHEN 500 MG TABLET PO PRN (22:45)
[2025-05-13] MEDS ORDERED: DOCUSATE SODIUM 100 MG CAPSULE PO PRN (22:45)
[2025-05-13] MEDS ORDERED: MAG HYDROX/ALUMINUM HYD/SIMETH ES 30 ML SUSPENSION UDCUP PO PRN (22:45)
[2025-05-13] MEDS ORDERED: LOPERAMIDE HCL 2 MG CAPSULE PO PRN (22:45)
[2025-05-13] MEDS ORDERED: PETROLATUM,WHITE 28 GM JELLY TP PRN (22:45)
[2025-05-13] MEDS ORDERED: ACETAMINOPHEN 325 MG TABLET PO PRN (22:45)
[2025-05-13] MEDS ORDERED: ALBUTEROL SULFATE HFA 90 MCG/PUFF 8 GM INHALER IH PRN (22:45)
[2025-05-13] MEDS ORDERED: ONDANSETRON 4 MG TABLET PO PRN (22:45)
[2025-05-13] MEDS ORDERED: GuaiFENesin/D-METHORPHAN [SUGAR-FREE] 200-20MG/10 ML SYRUP UDCUP PO PRN (22:45)
[2025-05-13] MEDS ORDERED: IBUPROFEN 400 MG TABLET PO PRN (22:45)
[2025-05-13] MEDS ORDERED: NICOTINE 14 MG/24 HOUR PATCH TD PRN (22:45)
[2025-05-14 05:56] LABS: GLUCOMETER DEV NAME(LOC) 3EX.2; GLUCOSE,POINT OF CARE 339 MG/DL (70-110)
[2025-05-14] MEDS: OMEPRAZOLE 20 MG CAPSULE PO SCH (06:09)
[2025-05-14] MEDS: INSULIN LISPRO 100 UNITS/ML SQ PRN (06:38)
[2025-05-14] MEDS: THIAMINE 100 MG TABLET PO SCH (08:08)
[2025-05-14] MEDS: FOLIC ACID 1 MG TABLET PO SCH (08:08)
[2025-05-14] MEDS: ATORVASTATIN CALCIUM 40 MG TABLET PO SCH (08:08)
[2025-05-14] MEDS: MULTIVITAMINS WITH MINERALS, THERAPEUTIC TABLET PO SCH (08:08)
[2025-05-14 11:19] VITALS: BP 123/79; PULSE 91; RESP 17; TEMP 98.3; O2SAT 97
[2025-05-14 11:32] LABS: PLATELET COUNT (AUTO) 146 K/uL (150-450); RED BLOOD CELL COUNT(AUTO) 5.04 MIL/uL (4.50-5.90); RED CELL DISTRIBUTION WIDTH 13.7 % (11.5-14.5); WHITE BLOOD COUNT (AUTO) 3.4 K/uL (4.5-11.0)
[2025-05-14 11:55] LABS: ASPARTATE AMINOTRANSFERASE 17 U/L (15-37); CALCIUM, TOTAL 9.5 mg/dL (8.8-10.5); CREATININE 1.05 mg/dL (0.60-1.30); GLOMERULAR FILTR. RATE CALC > 60 mL/min (>60); SODIUM SERUM 132 mmol/L (136-145); TOTAL PROTEIN, SERUM 7.3 g/dL (6.4-8.2); UREA NITROGEN, BLOOD 10 mg/dL (7-18)
[2025-05-14 11:55] LABS: GLUCOMETER DEV NAME(LOC) 3EX.2; GLUCOSE,POINT OF CARE 487 MG/DL (70-110)
[2025-05-14 12:00] LABS: GLUCOSE,RANDOM 479 mg/dL (70-110)
[2025-05-14] MEDS: INSULIN LISPRO 100 UNITS/ML SQ ONE ×2 (12:14→17:33)
[2025-05-14 17:30] LABS: GLUCOMETER DEV NAME(LOC) 3EX.2; GLUCOSE,POINT OF CARE 412 MG/DL (70-110)
[2025-05-14] MEDS ORDERED: INSULIN GLARGINE,HUM.REC.ANLOG 100 UNITS/ML SQ SCH (21:00)
[2025-05-14] MEDS: INSULIN GLARGINE,HUM.REC.ANLOG 100 UNITS/ML SQ SCH (21:11)
[2025-05-14 21:40] LABS: GLUCOMETER DEV NAME(LOC) 3EX.2; GLUCOSE,POINT OF CARE 294 MG/DL (70-110)
[2025-05-14 22:11] VITALS: BP 115/90; PULSE 108; RESP 19; TEMP 98.6; O2SAT 99
[2025-05-15] MEDS: ZOLPIDEM TARTRATE 10 MG TABLET PO PRN (01:39)
[2025-05-15 06:50] LABS: GLUCOMETER DEV NAME(LOC) 3EX.2; GLUCOSE,POINT OF CARE 360 MG/DL (70-110)
[2025-05-15 07:57] LABS: CALCIUM, TOTAL 9.4 mg/dL (8.8-10.5); CREATININE 1.05 mg/dL (0.60-1.30); GLOMERULAR FILTR. RATE CALC > 60 mL/min (>60); GLUCOSE,RANDOM 366 mg/dL (70-110); SODIUM SERUM 135 mmol/L (136-145); UREA NITROGEN, BLOOD 13 mg/dL (7-18)
[2025-05-15] MEDS ORDERED: GLUCAGON,HUMAN RECOMBINANT 1 MG VIAL IM PRN (08:30)
[2025-05-15 11:26] VITALS: BP 117/89; PULSE 106; RESP 18; TEMP 97.9; O2SAT 100
[2025-05-15 11:30] LABS: GLUCOMETER DEV NAME(LOC) 3EX.2; GLUCOSE,POINT OF CARE 273 MG/DL (70-110)
[2025-05-15] MEDS: INSULIN LISPRO 100 UNITS/ML SQ ONE (17:24)
[2025-05-15 17:31] LABS: GLUCOMETER DEV NAME(LOC) 3EX.2; GLUCOSE,POINT OF CARE 494 MG/DL (70-110)
[2025-05-15 20:00] VITALS: BP 128/90; PULSE 100; RESP 16; TEMP 98.1; O2SAT 100
[2025-05-15 20:26] LABS: GLUCOMETER DEV NAME(LOC) 3EX.2; GLUCOSE,POINT OF CARE 292 MG/DL (70-110)
[2025-05-15] MEDS: INSULIN GLARGINE,HUM.REC.ANLOG 100 UNITS/ML SQ SCH (21:04)
[2025-05-16 06:36] LABS: GLUCOMETER DEV NAME(LOC) 3EX.2; GLUCOSE,POINT OF CARE 381 MG/DL (70-110)
[2025-05-16 08:30] VITALS: BP 111/81; PULSE 63; RESP 18; TEMP 98; O2SAT 98
[2025-05-16 11:21] LABS: GLUCOMETER DEV NAME(LOC) 3EX.2; GLUCOSE,POINT OF CARE 356 MG/DL (70-110)
[2025-05-16 17:26] LABS: GLUCOMETER DEV NAME(LOC) 3EX.2; GLUCOSE,POINT OF CARE 392 MG/DL (70-110)
[2025-05-16 20:00] VITALS: BP 119/80; PULSE 100; RESP 18; TEMP 97.1; O2SAT 100
[2025-05-16 20:51] LABS: GLUCOMETER DEV NAME(LOC) 3EX.2; GLUCOSE,POINT OF CARE 300 MG/DL (70-110)
[2025-05-17 06:50] LABS: GLUCOMETER DEV NAME(LOC) 3EX.2; GLUCOSE,POINT OF CARE 341 MG/DL (70-110)
[2025-05-17 10:14] VITALS: BP 99/68; PULSE 101; RESP 16; TEMP 98; O2SAT 100
[2025-05-17 11:40] LABS: GLUCOMETER DEV NAME(LOC) 3EX.2; GLUCOSE,POINT OF CARE 308 MG/DL (70-110)
[2025-05-17 20:30] LABS: GLUCOMETER DEV NAME(LOC) 3EX.2; GLUCOSE,POINT OF CARE 262 MG/DL (70-110)
[2025-05-17 22:19] VITALS: BP 106/82; PULSE 86; RESP 18; TEMP 97.9; O2SAT 98
[2025-05-18 06:35] LABS: GLUCOMETER DEV NAME(LOC) 3EX.2; GLUCOSE,POINT OF CARE 365 MG/DL (70-110)
[2025-05-18 10:00] VITALS: BP 101/83; PULSE 100; RESP 18; TEMP 96.9; O2SAT 100
[2025-05-18 11:21] LABS: GLUCOMETER DEV NAME(LOC) 3EX.2; GLUCOSE,POINT OF CARE 361 MG/DL (70-110)
[2025-05-18 16:26] LABS: GLUCOMETER DEV NAME(LOC) 3EX.2; GLUCOSE,POINT OF CARE 296 MG/DL (70-110)
[2025-05-18 20:31] LABS: GLUCOMETER DEV NAME(LOC) 3EX.2; GLUCOSE,POINT OF CARE 272 MG/DL (70-110)
[2025-05-18] MEDS: INSULIN GLARGINE,HUM.REC.ANLOG 100 UNITS/ML SQ SCH (21:09)
[2025-05-18 21:41] VITALS: BP 112/80; PULSE 92; RESP 19; TEMP 97.6; O2SAT 98
[2025-05-19 06:10] LABS: GLUCOMETER DEV NAME(LOC) 3EX.2; GLUCOSE,POINT OF CARE 355 MG/DL (70-110)
[2025-05-19 10:13] VITALS: BP 110/83; PULSE 95; RESP 17; TEMP 97.7; O2SAT 99
[2025-05-19 11:11] LABS: GLUCOMETER DEV NAME(LOC) 3EX.2; GLUCOSE,POINT OF CARE 225 MG/DL (70-110)
[2025-05-19] MEDS ORDERED: CLOZ100T61 PO (15:39)
[2025-05-19] MEDS ORDERED: GLIP5TAB15 PO (16:27)
[2025-05-19] MEDS ORDERED: METF-1211 PO (16:27)
[2025-05-19] MEDS ORDERED: ATOR40TA71 PO (16:27)
[2025-05-19] MEDS ORDERED: OMEP20CA12 PO (16:27)
[2025-05-19] MEDS ORDERED: INSLAN SQ (16:27)
[2025-05-19 17:26] LABS: GLUCOMETER DEV NAME(LOC) 3EX.2; GLUCOSE,POINT OF CARE 341 MG/DL (70-110)
== END 2025-05-19 17:23 | disposition home or self-care (01) | DRG 885 ==
LOC: 3EI 21:15
PROVIDERS: ADMIT Psychiatry & Neurology Psychiatry; ATTEND Psychiatry & Neurology Psychiatry
PROC: GZHZZZZ Group Psychotherapy (ICD-10-PCS; principal; 2025-05-14)
PROC: GZ58ZZZ Individual Psychotherapy, Cognitive-Behavioral (ICD-10-PCS; 2025-05-14)
PROC: GZ56ZZZ Individual Psychotherapy, Supportive (ICD-10-PCS; 2025-05-14)
DX: F20.0 Paranoid schizophrenia (principal); E11.65 Type 2 diabetes mellitus with hyperglycemia; E78.5 Hyperlipidemia, unspecified; I10 Essential (primary) hypertension; Z60.8 Other problems related to social environment; F17.200 Nicotine dependence, unspecified, uncomplicated; Z63.9 Problem related to primary support group, unspecified; Z59.71 Insufficient health insurance coverage; Z65.3 Problems related to other legal circumstances; Z55.9 Problems related to education and literacy, unspecified; Z79.4 Long term (current) use of insulin; Z88.5 Allergy status to narcotic agent; Z79.899 Other long term (current) drug therapy
CPT/HCPCS: 80048; 80053; 80159; 80164; 82962; 83036; 84443; 85025; 87081; J1815

== ENCOUNTER 2025-07-28 15:53 | Inpatient (IN) | payer MEDICARE, MEDICAID ==
[~2025-07-28] VITALS: Ht 172.7 cm; Wt 80.0 kg
[~2025-07-28 15:53] MED LIST changes: -ATOR-2 PO; +ATOR40TA71 PO; -BENZ0.5T52 PO; -CLOZ100T11 PO; +CLOZ100T61 PO; -GABA-529 PO; +GLIP5TAB15 PO; +INSLAN SQ; -INSU100I24 SQ; -INSU200I SQ; +METF-1211 PO; -METF-81 PO; -[UNRECOGNIZED DRUG - CODE] IM
[2025-07-28 16:35] LABS: PLATELET COUNT (AUTO) 133 K/uL (150-450); RED BLOOD CELL COUNT(AUTO) 5.16 MIL/uL (4.50-5.90); RED CELL DISTRIBUTION WIDTH 13.2 % (11.5-14.5); WHITE BLOOD COUNT (AUTO) 4.7 K/uL (4.5-11.0)
[2025-07-28 16:37] LABS: CALCIUM, TOTAL 9.2 mg/dL (8.8-10.5); CREATININE 0.68 mg/dL (0.60-1.30); GLOMERULAR FILTR. RATE CALC > 60 mL/min (>60); GLUCOSE,RANDOM 180 mg/dL (70-110); SODIUM SERUM 137 mmol/L (136-145); UREA NITROGEN, BLOOD 15 mg/dL (7-18)
[2025-07-28 16:45] VITALS: O2SAT 98
[2025-07-28 17:32] LABS: PH,URINE DRUG SCREEN 5.0 (5.0-8.0)
[2025-07-28 17:37] LABS: ALCOHOL, URINE DRUG SCREEN NEGATIVE (NEGATIVE); AMPHET/METH SCREEN,URINE NEGATIVE (NEGATIVE); BARBITURATE SCREEN, URINE NEGATIVE (NEGATIVE); CANNABINOID SCREEN,URINE NEGATIVE (NEGATIVE); COCAINE SCREEN,URINE NEGATIVE (NEGATIVE); METHADONE SCREEN, URINE NEGATIVE (NEGATIVE)
[2025-07-28 18:49] LABS: COVID AG,FIA SOURCE NASAL SWAB
[2025-07-28 19:12] LABS: SARS-COV2 (COVID) ANTIGEN,FIA Negative (Negative)
[2025-07-28] MEDS: ZOLPIDEM TARTRATE 10 MG TABLET PO PRN (23:10)
[2025-07-29 02:29] VITALS: BP 132/89; PULSE 93; RESP 18; TEMP 98.2; O2SAT 100
[2025-07-29] MEDS ORDERED: PNEUMOCOCCAL VACCINE POLYVALENT 0.5 ML SYRINGE [PPSV23] IM. ONE (02:45)
[2025-07-29] MEDS ORDERED: INFLUENZA VIRUS VACCINE TVS (6MO+) 2025-26/PF 45 MCG/0.5 ML SYRINGE IM. ONE (02:45)
[2025-07-29] MEDS ORDERED: ACETAMINOPHEN 325 MG TABLET PO PRN (08:15)
[2025-07-29] MEDS ORDERED: IBUPROFEN 600 MG TABLET PO PRN (08:15)
[2025-07-29] MEDS ORDERED: PETROLATUM,WHITE 28 GM JELLY TP PRN (08:15)
[2025-07-29] MEDS ORDERED: LOPERAMIDE HCL 2 MG CAPSULE PO PRN (08:15)
[2025-07-29] MEDS ORDERED: BACITRACIN 28 GM OINTMENT TP PRN (08:15)
[2025-07-29] MEDS ORDERED: ONDANSETRON 4 MG TABLET PO PRN (08:15)
[2025-07-29] MEDS ORDERED: MAG HYDROX/ALUMINUM HYD/SIMETH ES 30 ML SUSPENSION UDCUP PO PRN (08:15)
[2025-07-29] MEDS ORDERED: OMEPRAZOLE 20 MG CAPSULE PO PRN (08:15)
[2025-07-29] MEDS ORDERED: BENZOCAINE/MENTHOL [CEPACOL] LOZENGE PO PRN (08:15)
[2025-07-29] MEDS ORDERED: ALBUTEROL SULFATE HFA 90 MCG/PUFF 8 GM INHALER IH PRN (08:15)
[2025-07-29] MEDS ORDERED: DEXTROSE 50%-WATER 25 GM/50 ML SYRINGE IVP PRN (08:15)
[2025-07-29] MEDS ORDERED: DOCUSATE SODIUM 100 MG CAPSULE PO PRN (08:15)
[2025-07-29] MEDS ORDERED: MAGNESIUM HYDROXIDE SUSPENSION 30 ML UDCUP PO PRN (08:15)
[2025-07-29] MEDS: ATORVASTATIN CALCIUM 40 MG TABLET PO SCH (08:46)
[2025-07-29] MEDS: NICOTINE 21 MG/24 HOUR PATCH TD SCH (08:48)
[2025-07-29] MEDS: GENTAMICIN SULFATE 0.3% OPHTHALMIC SOLUTION 5 ML OS SCH (10:00)
[2025-07-29 10:29] VITALS: BP 118/87; PULSE 100; RESP 18; TEMP 97.3; O2SAT 100
[2025-07-29] MEDS: INSULIN LISPRO 100 UNITS/ML SQ ONE ×2 (12:12→13:30)
[2025-07-29 12:25] LABS: GLUCOMETER DEV NAME(LOC) 3E.C; GLUCOSE,POINT OF CARE 491 MG/DL (70-110)
[2025-07-29 12:26] LABS: GLUCOMETER DEV NAME(LOC) 3E.C; GLUCOSE,POINT OF CARE 522 MG/DL (70-110)
[2025-07-29 13:36] LABS: GLUCOMETER DEV NAME(LOC) 3E.C; GLUCOSE,POINT OF CARE 572 MG/DL (70-110)
[2025-07-29 14:45] LABS: GLUCOMETER DEV NAME(LOC) 3E.C; GLUCOSE,POINT OF CARE 398 MG/DL (70-110)
[2025-07-29] MEDS: INSULIN LISPRO 100 UNITS/ML SQ PRN (17:39)
[2025-07-29 18:30] LABS: GLUCOMETER DEV NAME(LOC) 3E.C; GLUCOSE,POINT OF CARE 163 MG/DL (70-110)
[2025-07-29 18:40] LABS: GLUCOMETER DEV NAME(LOC) 3E.C; GLUCOSE,POINT OF CARE 227 MG/DL (70-110)
[2025-07-29 20:45] VITALS: BP 108/72; PULSE 84; RESP 19; TEMP 98.3; O2SAT 97
[2025-07-29] MEDS ORDERED: INSULIN GLARGINE,HUM.REC.ANLOG 100 UNITS/ML SQ SCH (21:00)
[2025-07-29] MEDS: INSULIN GLARGINE,HUM.REC.ANLOG 100 UNITS/ML SQ SCH (21:03)
[2025-07-29 21:11] LABS: GLUCOMETER DEV NAME(LOC) 3E.C; GLUCOSE,POINT OF CARE 215 MG/DL (70-110)
[2025-07-30 06:47] LABS: PLATELET COUNT (AUTO) 145 K/uL (150-450); RED BLOOD CELL COUNT(AUTO) 5.24 MIL/uL (4.50-5.90); RED CELL DISTRIBUTION WIDTH 13.0 % (11.5-14.5); WHITE BLOOD COUNT (AUTO) 4.7 K/uL (4.5-11.0)
[2025-07-30 07:10] LABS: GLUCOMETER DEV NAME(LOC) 3E.C; GLUCOSE,POINT OF CARE 309 MG/DL (70-110)
[2025-07-30 07:17] LABS: ASPARTATE AMINOTRANSFERASE 19 U/L (15-37); CALCIUM, TOTAL 9.1 mg/dL (8.8-10.5); CHOL/HDL RATIO 3.4 (4.2-7.3); CREATININE 0.96 mg/dL (0.60-1.30); GLOMERULAR FILTR. RATE CALC > 60 mL/min (>60); GLUCOSE,RANDOM 335 mg/dL (70-110); LDL CHOL (CALC.) 57 mg/dL (0-130); PHOSPHORUS 3.2 mg/dL (2.5-4.9); SODIUM SERUM 140 mmol/L (136-145); TOTAL PROTEIN, SERUM 7.4 g/dL (6.4-8.2); UREA NITROGEN, BLOOD 21 mg/dL (7-18)
[2025-07-30 08:08] LABS: ALCOHOL, URINE DRUG SCREEN NEGATIVE (NEGATIVE); AMPHET/METH SCREEN,URINE NEGATIVE (NEGATIVE); APPEARANCE,URINE CLEAR (CLEAR); BARBITURATE SCREEN, URINE NEGATIVE (NEGATIVE); CANNABINOID SCREEN,URINE NEGATIVE (NEGATIVE); COCAINE SCREEN,URINE NEGATIVE (NEGATIVE); GLUCOSE, URINE (UA) >=1000 mg/dL (NEGATIVE); LEUKOCYTE ESTERASE ,URINE NEGATIVE (NEGATIVE); METHADONE SCREEN, URINE NEGATIVE (NEGATIVE); NITRATE,URINE NEGATIVE (NEGATIVE); OCCULT BLOOD,URINE NEGATIVE (NEGATIVE); SPECIFIC GRAVITIY, URINE 1.045 (1.003-1.030)
[2025-07-30] MEDS: INSULIN GLARGINE,HUM.REC.ANLOG 100 UNITS/ML SQ SCH (08:27)
[2025-07-30 09:08] LABS: PH,URINE DRUG SCREEN 5.5 (5.0-8.0)
[2025-07-30 09:21] LABS: GLUCOMETER DEV NAME(LOC) 3E.C; GLUCOSE,POINT OF CARE 379 MG/DL (70-110)
[2025-07-30 10:03] VITALS: BP 124/95; PULSE 98; RESP 18; TEMP 97.7; O2SAT 98
[2025-07-30 11:36] LABS: GLUCOMETER DEV NAME(LOC) 3E.C; GLUCOSE,POINT OF CARE 295 MG/DL (70-110)
[2025-07-30 17:46] LABS: GLUCOMETER DEV NAME(LOC) 3E.C; GLUCOSE,POINT OF CARE 273 MG/DL (70-110)
[2025-07-30 21:06] LABS: GLUCOMETER DEV NAME(LOC) 3E.C; GLUCOSE,POINT OF CARE 290 MG/DL (70-110)
[2025-07-30 22:18] VITALS: BP 123/77; PULSE 96; RESP 18; TEMP 97.9; O2SAT 99
[2025-07-31 06:41] LABS: GLUCOMETER DEV NAME(LOC) 3E.C; GLUCOSE,POINT OF CARE 315 MG/DL (70-110)
[2025-07-31 09:31] LABS: GLUCOMETER DEV NAME(LOC) 3E.C; GLUCOSE,POINT OF CARE 189 MG/DL (70-110)
[2025-07-31 11:50] LABS: GLUCOMETER DEV NAME(LOC) 3E.C; GLUCOSE,POINT OF CARE 258 MG/DL (70-110)
[2025-07-31 12:44] VITALS: BP 125/69; PULSE 98; RESP 18; TEMP 98.2; O2SAT 98
[2025-07-31 17:45] LABS: GLUCOMETER DEV NAME(LOC) 3E.C; GLUCOSE,POINT OF CARE 330 MG/DL (70-110)
[2025-07-31 21:11] LABS: GLUCOMETER DEV NAME(LOC) 3E.C; GLUCOSE,POINT OF CARE 229 MG/DL (70-110)
[2025-08-01 06:55] LABS: GLUCOMETER DEV NAME(LOC) 3E.C; GLUCOSE,POINT OF CARE 247 MG/DL (70-110)
[2025-08-01 08:34] VITALS: BP 113/88; PULSE 99; RESP 16; TEMP 97.9; O2SAT 100
[2025-08-01 08:56] LABS: GLUCOMETER DEV NAME(LOC) 3E.C; GLUCOSE,POINT OF CARE 180 MG/DL (70-110)
[2025-08-01 12:15] LABS: GLUCOMETER DEV NAME(LOC) 3E.C; GLUCOSE,POINT OF CARE 186 MG/DL (70-110)
[2025-08-01 17:06] LABS: GLUCOMETER DEV NAME(LOC) 3E.C; GLUCOSE,POINT OF CARE 224 MG/DL (70-110)
[2025-08-01 20:23] VITALS: BP 119/97; PULSE 100; RESP 16; TEMP 97.9; O2SAT 100
[2025-08-01 21:25] LABS: GLUCOMETER DEV NAME(LOC) 3E.C; GLUCOSE,POINT OF CARE 301 MG/DL (70-110)
[2025-08-02 06:51] LABS: GLUCOMETER DEV NAME(LOC) 3E.C; GLUCOSE,POINT OF CARE 186 MG/DL (70-110)
[2025-08-02 10:55] VITALS: BP 112/81; PULSE 91; RESP 18; TEMP 97.8; O2SAT 98
[2025-08-02 11:50] LABS: GLUCOMETER DEV NAME(LOC) 3E.C; GLUCOSE,POINT OF CARE 268 MG/DL (70-110)
[2025-08-02 17:50] LABS: GLUCOMETER DEV NAME(LOC) 3E.C; GLUCOSE,POINT OF CARE 224 MG/DL (70-110)
[2025-08-02 20:08] VITALS: BP 127/86; PULSE 88; RESP 20; TEMP 97.9; O2SAT 98
[2025-08-02 20:30] LABS: GLUCOMETER DEV NAME(LOC) 3E.C; GLUCOSE,POINT OF CARE 148 MG/DL (70-110)
[2025-08-03 06:11] LABS: GLUCOMETER DEV NAME(LOC) 3E.C; GLUCOSE,POINT OF CARE 110 MG/DL (70-110)
[2025-08-03] MEDS ORDERED: INSLAN SQ (10:41)
[2025-08-03] MEDS ORDERED: CLOZ200T24 PO (10:42)
[2025-08-03] MEDS ORDERED: GENTOS OS (10:42)
[2025-08-03 10:49] VITALS: BP 103/76; PULSE 85; RESP 18; TEMP 97.9; O2SAT 99
[2025-08-03 12:10] LABS: GLUCOMETER DEV NAME(LOC) 3E.C; GLUCOSE,POINT OF CARE 310 MG/DL (70-110)
== END 2025-08-03 16:45 | disposition home or self-care (01) | DRG 885 ==
LOC: EMS 15:53 → 3EC 07-29 01:10
PROVIDERS: ADMIT Psychiatry & Neurology Psychiatry; ATTEND Psychiatry & Neurology Psychiatry
DX: F20.0 Paranoid schizophrenia (principal); E11.65 Type 2 diabetes mellitus with hyperglycemia; R45.851 Suicidal ideations; H57.12 Ocular pain, left eye; I10 Essential (primary) hypertension; E78.5 Hyperlipidemia, unspecified; K21.9 Gastro-esophageal reflux disease without esophagitis; F12.90 Cannabis use, unspecified, uncomplicated; K59.00 Constipation, unspecified; G47.00 Insomnia, unspecified; F17.200 Nicotine dependence, unspecified, uncomplicated; Z20.822 Contact with and (suspected) exposure to COVID-19; Z71.6 Tobacco abuse counseling; Z79.899 Other long term (current) drug therapy
CPT/HCPCS: 80048; 80053; 80061; 80307; 81001; 82947; 82962; 83036; 83735; 84100; 84443; 85025; 99285; G0480; J1815

== ENCOUNTER 2025-08-19 14:05 | Inpatient (IN) | payer MEDICARE, MEDICAID ==
[~2025-08-19] VITALS: Ht 175.3 cm; Wt 80.5 kg
[~2025-08-19 14:05] MED LIST changes: -CLOZ100T61 PO; +CLOZ200T24 PO; -GLIP5TAB15 PO; -METF-1211 PO; -OMEP20CA12 PO
[2025-08-19] MEDS ORDERED: BUSP5TAB20 PO (14:14)
[2025-08-19 15:29] LABS: RED BLOOD CELL COUNT(AUTO) 5.46 MIL/uL (4.50-5.90); RED CELL DISTRIBUTION WIDTH 12.8 % (11.5-14.5); WHITE BLOOD COUNT (AUTO) 8.9 K/uL (4.5-11.0)
[2025-08-19 15:35] LABS: CALCIUM, TOTAL 9.8 mg/dL (8.8-10.5); CREATININE 1.09 mg/dL (0.60-1.30); GLOMERULAR FILTR. RATE CALC > 60 mL/min (>60); GLUCOSE,RANDOM 394 mg/dL (70-110); SODIUM SERUM 136 mmol/L (136-145); UREA NITROGEN, BLOOD 21 mg/dL (7-18)
[2025-08-19 15:43] LABS: PLATELET COUNT (AUTO) 113 K/uL (150-450); PLATELET MORPHOLOGY COMMENT LARGE PLTS PRESENT; RBC MORPHOLOGY COMMENT NORMAL RBC MORPH
[2025-08-19 16:01] LABS: APPEARANCE,URINE CLEAR (CLEAR); GLUCOSE, URINE (UA) >=1000 mg/dL (NEGATIVE); LEUKOCYTE ESTERASE ,URINE LARGE (NEGATIVE); NITRATE,URINE NEGATIVE (NEGATIVE); OCCULT BLOOD,URINE MODERATE (NEGATIVE); PH,URINE DRUG SCREEN 5.0 (5.0-8.0); SPECIFIC GRAVITIY, URINE 1.041 (1.003-1.030)
[2025-08-19 16:07] LABS: AMPHET/METH SCREEN,URINE NEGATIVE (NEGATIVE); BARBITURATE SCREEN, URINE NEGATIVE (NEGATIVE); CANNABINOID SCREEN,URINE NEGATIVE (NEGATIVE); COCAINE SCREEN,URINE NEGATIVE (NEGATIVE); METHADONE SCREEN, URINE NEGATIVE (NEGATIVE)
[2025-08-19 16:08] LABS: SQUAMOUS EPITHELIAL CELL,UR Rare /LPF (None Seen)
[2025-08-19 16:10] LABS: ALCOHOL, URINE DRUG SCREEN NEGATIVE (NEGATIVE)
[2025-08-19] MEDS ORDERED: OLANZapine 5 MG RAPDIS TABLET PO PRN (16:30)
[2025-08-19] MEDS: CEPHALEXIN MONOHYDRATE 500 MG CAPSULE PO ONE (16:33)
[2025-08-19 16:54] LABS: COVID AG,FIA SOURCE NASAL SWAB
[2025-08-19 17:22] LABS: SARS-COV2 (COVID) ANTIGEN,FIA Negative (Negative)
[2025-08-19 17:50] LABS: GLUCOMETER DEV NAME(LOC) ER.7; GLUCOSE,POINT OF CARE 364 MG/DL (70-110)
[2025-08-19] MEDS: SODIUM CHLORIDE 0.9% 1,000 ML IV ONE ×2 (18:24→20:31)
[2025-08-19] MEDS: INSULIN REGULAR, HUMAN 100 UNITS/ML IVP ONE ×2 (18:31→20:00)
[2025-08-19 21:30] LABS: GLUCOMETER DEV NAME(LOC) ER.7; GLUCOSE,POINT OF CARE 203 MG/DL (70-110)
[2025-08-20 00:05] VITALS: BP 136/95; PULSE 94; RESP 18; TEMP 97.6; O2SAT 100
[2025-08-20] MEDS: ZOLPIDEM TARTRATE 10 MG TABLET PO PRN (01:29)
[2025-08-20] MEDS ORDERED: IBUPROFEN 600 MG TABLET PO PRN (08:15)
[2025-08-20] MEDS ORDERED: DOCUSATE SODIUM 100 MG CAPSULE PO PRN (08:15)
[2025-08-20] MEDS ORDERED: ONDANSETRON 4 MG TABLET PO PRN (08:15)
[2025-08-20] MEDS ORDERED: INSULIN LISPRO 100 UNITS/ML SQ PRN (08:15)
[2025-08-20] MEDS ORDERED: DEXTROSE 50%-WATER 25 GM/50 ML SYRINGE IVP PRN ×2 (08:15)
[2025-08-20] MEDS ORDERED: LOPERAMIDE HCL 2 MG CAPSULE PO PRN ×2 (08:15→09:15)
[2025-08-20] MEDS ORDERED: ALBUTEROL SULFATE HFA 90 MCG/PUFF 8 GM INHALER IH PRN (08:15)
[2025-08-20] MEDS ORDERED: BACITRACIN 28 GM OINTMENT TP PRN (08:15)
[2025-08-20] MEDS ORDERED: PETROLATUM,WHITE 28 GM JELLY TP PRN (08:15)
[2025-08-20] MEDS ORDERED: MAG HYDROX/ALUMINUM HYD/SIMETH ES 30 ML SUSPENSION UDCUP PO PRN (08:15)
[2025-08-20] MEDS ORDERED: BENZOCAINE/MENTHOL [CEPACOL] LOZENGE PO PRN (08:15)
[2025-08-20] MEDS ORDERED: OMEPRAZOLE 20 MG CAPSULE PO PRN (08:15)
[2025-08-20] MEDS ORDERED: MAGNESIUM HYDROXIDE SUSPENSION 30 ML UDCUP PO PRN (08:15)
[2025-08-20 08:26] LABS: GLUCOMETER DEV NAME(LOC) 3E.C; GLUCOSE,POINT OF CARE 345 MG/DL (70-110)
[2025-08-20] MEDS: INSULIN LISPRO 100 UNITS/ML SQ PRN (08:29)
[2025-08-20] MEDS: CEPHALEXIN MONOHYDRATE 500 MG CAPSULE PO SCH (09:00)
[2025-08-20] MEDS: NICOTINE 21 MG/24 HOUR PATCH TD SCH (09:00)
[2025-08-20] MEDS: INSULIN GLARGINE,HUM.REC.ANLOG 100 UNITS/ML SQ SCH (09:06)
[2025-08-20] MEDS ORDERED: GABAPENTIN 300 MG CAPSULE PO PRN (09:15)
[2025-08-20] MEDS ORDERED: GuaiFENesin/D-METHORPHAN [SUGAR-FREE] 200-20MG/10 ML SYRUP UDCUP PO PRN (09:15)
[2025-08-20 09:16] VITALS: BP 131/96; PULSE 85; RESP 18; TEMP 98; O2SAT 99
[2025-08-20 09:23] VITALS: BP 131/96; PULSE 98; RESP 16; TEMP 97.8; O2SAT 99
[2025-08-20] MEDS: CYANOCOBALAMIN 1,000 MCG/ML VIAL IM ONE (10:39)
[2025-08-20 11:55] LABS: GLUCOMETER DEV NAME(LOC) 3E.C; GLUCOSE,POINT OF CARE 435 MG/DL (70-110)
[2025-08-20] MEDS: ACETAMINOPHEN 325 MG TABLET PO PRN (12:32)
[2025-08-20] MEDS: GABAPENTIN 400 MG CAPSULE PO SCH (12:33)
[2025-08-20] MEDS: THIAMINE 100 MG TABLET PO SCH (17:07)
[2025-08-20 17:15] LABS: GLUCOMETER DEV NAME(LOC) 3E.C; GLUCOSE,POINT OF CARE 366 MG/DL (70-110)
[2025-08-20] MEDS: ATORVASTATIN CALCIUM 20 MG TABLET PO SCH (21:13)
[2025-08-20 21:21] LABS: GLUCOMETER DEV NAME(LOC) 3E.C; GLUCOSE,POINT OF CARE 241 MG/DL (70-110)
[2025-08-20 21:46] VITALS: BP 131/68; PULSE 68; RESP 17; TEMP 97.5; O2SAT 98
[2025-08-21 06:50] LABS: GLUCOMETER DEV NAME(LOC) 3E.C; GLUCOSE,POINT OF CARE 340 MG/DL (70-110)
[2025-08-21 09:16] VITALS: BP 107/80; PULSE 78; RESP 17; TEMP 98.6; O2SAT 100
[2025-08-21] MEDS: MULTIVITAMINS WITH MINERALS, THERAPEUTIC TABLET PO SCH (09:19)
[2025-08-21] MEDS: FOLIC ACID 1 MG TABLET PO SCH (09:19)
[2025-08-21 10:38] VITALS: BP 107/80; PULSE 78; RESP 17; TEMP 98.6; O2SAT 100
[2025-08-21 11:40] LABS: GLUCOMETER DEV NAME(LOC) 3E.C; GLUCOSE,POINT OF CARE 431 MG/DL (70-110)
[2025-08-21 17:51] LABS: GLUCOMETER DEV NAME(LOC) 3E.C; GLUCOSE,POINT OF CARE 290 MG/DL (70-110)
[2025-08-21 20:09] VITALS: BP 96/66; PULSE 96; RESP 18; TEMP 98.6; O2SAT 98
[2025-08-21 20:40] LABS: GLUCOMETER DEV NAME(LOC) 3E.C; GLUCOSE,POINT OF CARE 249 MG/DL (70-110)
[2025-08-22 06:30] LABS: GLUCOMETER DEV NAME(LOC) 3E.C; GLUCOSE,POINT OF CARE 273 MG/DL (70-110)
[2025-08-22 09:30] VITALS: BP 144/84; PULSE 103; RESP 19; TEMP 97.6; O2SAT 96
[2025-08-22 11:40] LABS: GLUCOMETER DEV NAME(LOC) 3E.C; GLUCOSE,POINT OF CARE 278 MG/DL (70-110)
[2025-08-22 16:45] LABS: GLUCOMETER DEV NAME(LOC) 3E.C; GLUCOSE,POINT OF CARE 272 MG/DL (70-110)
[2025-08-22 20:16] LABS: GLUCOMETER DEV NAME(LOC) 3E.C; GLUCOSE,POINT OF CARE 275 MG/DL (70-110)
[2025-08-22 21:39] VITALS: BP 115/82; PULSE 94; RESP 17; TEMP 97.7; O2SAT 97
[2025-08-23 06:50] LABS: GLUCOMETER DEV NAME(LOC) 3E.C; GLUCOSE,POINT OF CARE 344 MG/DL (70-110)
[2025-08-23] MEDS ORDERED: CLOZ100T61 PO ×2 (09:48)
[2025-08-23] MEDS ORDERED: GABA-1201 PO (09:48)
[2025-08-23 09:59] VITALS: BP 130/99; PULSE 100; RESP 17; TEMP 97.7; O2SAT 99
[2025-08-23 12:05] LABS: GLUCOMETER DEV NAME(LOC) 3E.C; GLUCOSE,POINT OF CARE 209 MG/DL (70-110)
[2025-08-23] MEDS ORDERED: ATOR-2 PO (12:13)
[2025-08-23] MEDS ORDERED: GLIP-300 PO (12:14)
[2025-08-23] MEDS ORDERED: METF-1211 PO (12:14)
[2025-08-23 17:10] LABS: GLUCOMETER DEV NAME(LOC) 3E.C; GLUCOSE,POINT OF CARE 373 MG/DL (70-110)
[2025-08-24 16:07] LABS: CLOZAPINE & NORCLOZAPINE 320 ng/mL; NORCLOZAPINE 108 ng/mL (Not Estab.)
[2025-08-25] MEDS ORDERED: GlipiZIDE ER 2.5 MG ER TABLET PO SCH (17:00)
[2025-08-25] MEDS ORDERED: ATORVASTATIN CALCIUM 40 MG TABLET PO SCH (21:00)
[2025-08-26] MEDS ORDERED: GABA-1181 PO (11:58)
== END 2025-08-23 18:39 | disposition home or self-care (01) | DRG 885 ==
LOC: EMS 14:08 → 3EC 23:59 → EMS 08-20 00:13
PROVIDERS: ADMIT Psychiatry & Neurology Psychiatry; ATTEND Psychiatry & Neurology Psychiatry
PROC: GZHZZZZ Group Psychotherapy (ICD-10-PCS; principal; 2025-08-20)
PROC: GZ58ZZZ Individual Psychotherapy, Cognitive-Behavioral (ICD-10-PCS; 2025-08-20)
PROC: GZ56ZZZ Individual Psychotherapy, Supportive (ICD-10-PCS; 2025-08-20)
DX: F20.9 Schizophrenia, unspecified (principal); F06.1 Catatonic disorder due to known physiological condition; E11.65 Type 2 diabetes mellitus with hyperglycemia; N39.0 Urinary tract infection, site not specified; J44.9 Chronic obstructive pulmonary disease, unspecified; I10 Essential (primary) hypertension; Z20.822 Contact with and (suspected) exposure to COVID-19; F41.9 Anxiety disorder, unspecified; E78.5 Hyperlipidemia, unspecified; F17.210 Nicotine dependence, cigarettes, uncomplicated; G47.00 Insomnia, unspecified; F15.90 Other stimulant use, unspecified, uncomplicated; K21.9 Gastro-esophageal reflux disease without esophagitis; Z88.5 Allergy status to narcotic agent; Z55.9 Problems related to education and literacy, unspecified; Z59.9 Problem related to housing and economic circumstances, unspecified; Z63.9 Problem related to primary support group, unspecified; Z65.3 Problems related to other legal circumstances; Z71.6 Tobacco abuse counseling; Z91.199 Patient's noncompliance with other medical treatment and regimen due to unspecified reason
CPT/HCPCS: 80048; 80159; 80307; 81001; 82962; 85025; 87086; 96361; 96374; 96376; 99285; G0480; J1815; J3420; J7030; 36415-L1; 36415-TC